=== PATIENT | female | born 1960 | race Caucasian/White ===

== ENCOUNTER → 2016-02-20 | Outpatient (CLI) | payer BC ==
--- NOTE | 2016-02-20 11:23 | REP ---
Clinical: Pelvic pain and fullness with incontinence. Technique: Transabdominal pelvic ultrasound followed by transvaginal examination for better evaluation of the endometrium and adnexa with color Doppler evaluation of the ovaries. Findings: Bladder is unremarkable and measures 9.2 x 6.5 x 7.8 cm . Heterogeneous anteverted uterus measures 7.9 x 3.3 x 4.2 cm . The endometrial complex measures 3.0 mm thickness. A 1.6 cm left lateral submucosal fibroid is appreciated. Bilateral ovaries are normal in appearance. Right ovary measures 1.6 x 1.5 x 1.3 cm. Left ovary measures 1.7 x 2.1 x 1.2 cm. No pelvic fluid or adnexal mass lesions . Impression: 1. 1.6 cm left submucosal fibroid. 2. Otherwise unremarkable pelvic ultrasound.
== END ==
LOC: M WHC 09:50
PROVIDERS: ATTEND Nurse Practitioner Women's Health
DX: N94.89 Other specified conditions associated with female genital organs and menstrual cycle (principal)

== ENCOUNTER → 2016-03-04 | Outpatient (CLI) | payer BC ==
--- NOTE | 2016-03-04 09:40 | REP ---
Chest x-ray: Two views. History: Shortness of breath. . Comparison study: No comparison . Findings: The lungs are well inflated and free of infiltrate. The pleural angles are sharp. The heart size is normal. Pulmonary vasculature is not increased. No significant bony abnormality is seen. Impression: Negative chest x-ray.
== END ==
LOC: M CLY 08:45
PROVIDERS: ATTEND Family Medicine
DX: R06.02 Shortness of breath (principal)

== ENCOUNTER → 2016-05-01 | Outpatient (CLI) | payer BC ==
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
== END | disposition home or self-care (01) ==
LOC: M PAIN 13:20
PROVIDERS: ATTEND Nurse Practitioner Family
DX: G89.29 Other chronic pain (principal); M48.06 Spinal stenosis, lumbar region; M54.16 Radiculopathy, lumbar region; M53.3 Sacrococcygeal disorders, not elsewhere classified; E10.42 Type 1 diabetes mellitus with diabetic polyneuropathy; E28.2 Polycystic ovarian syndrome; F41.9 Anxiety disorder, unspecified; Z79.899 Other long term (current) drug therapy; Z79.84 Long term (current) use of oral hypoglycemic drugs; Z79.4 Long term (current) use of insulin; Z88.8 Allergy status to other drugs, medicaments and biological substances; E73.9 Lactose intolerance, unspecified; Z87.891 Personal history of nicotine dependence

== ENCOUNTER → 2016-06-03 | Outpatient (CLI) | payer BC ==
[~2016-06-03] MED LIST: ISOVUE-370 76% 100ML VIAL (Q9967) As Ordered ONE
--- NOTE | 2016-06-04 04:50 | REP ---
Clinical: Dyspnea. Technique: Axial contrast enhanced images from the thoracic inlet to the upper abdomen using 100 ml Isovue 370 intravenous contrast material with coronal and sagittal re-formations. Findings: Satisfactory enhancement of the pulmonary vasculature is achieved and no filling defects are identified to suggest pulmonary embolus. Thoracic aorta is normal caliber without aneurysm or dissection. Heart and pericardium are normal. Lung angela demonstrate mild dependent changes. A 7 mm noncalcified nodule is identified along the subpleural right lower lobe (image 41) and right hilar lymph nodes measure up to approximately 12 mm. No further consolidation, nodule or mass lesion appreciated. No pleural effusion/reaction. No pneumothorax. Impression: 1. No evidence for pulmonary embolus. 2. A 7 mm noncalcified nodule in the right lower lobe and 12 mm right hilar lymph node. Short-term, 3-month follow-up examination is recommended. Signed by iJn Zaragoza MD 06/04/2016 04:41 A
== END ==
LOC: M RAD 09:33
PROVIDERS: ATTEND Internal Medicine Cardiovascular Disease
DX: R06.00 Dyspnea, unspecified (principal)

== ENCOUNTER → 2016-06-11 | Outpatient (CLI) | payer BC ==
--- NOTE | 2016-06-12 02:46 | REP ---
Clinical: Pain. Technique: AP, lateral, bilateral oblique and sunrise views of the left knee. Findings: Age-related degenerative changes are appreciated including subtle joint space narrowing and cortical irregularities at the femoral condyles and proximal tibia. Lateral and sunrise views demonstrate minimal decreased patellofemoral joint space at as well as a very early forming superior and lateral patellar spurring. No acute fracture dislocation. No effusion. Impression: Mild age-related degenerative changes. Signed by Jin Zaragoza MD 06/12/2016 02:37 A
== END ==
LOC: M RAD 12:25
PROVIDERS: ATTEND Physician Assistant Medical
DX: M25.562 Pain in left knee (principal)

== ENCOUNTER → 2016-06-11 | Outpatient (CLI) | payer BC | LOC: M PAIN 11:20 | PROVIDERS: ATTEND Nurse Practitioner Family | DX: Z53.29 Procedure and treatment not carried out because of patient's decision for other reasons (principal) ==

== ENCOUNTER → 2016-06-18 | Outpatient (REF) | payer BC | LOC: M SFHCCLAY 14:10 | PROVIDERS: ATTEND Family Medicine | DX: D48.9 Neoplasm of uncertain behavior, unspecified (principal) ==

== ENCOUNTER → 2016-08-20 | Outpatient (REF) | payer BC ==
[~2016-08-20] MED LIST changes: -ISOVUE-370 76% 100ML VIAL (Q9967) As Ordered ONE; +KETO10TAB PO
[2016-08-20 11:49] LABS: ALBUMIN 3.5 GM/DL (3.2-5.2); ALBUMIN/GLOBULIN RATIO 1.06 (1.00-1.93); BILIRUBIN,TOTAL 0.2 MG/DL (0.2-1.0); CREATININE FOR GFR 1.19 MG/DL (0.55-1.02); POTASSIUM SERUM 4.5 MEQ/L (3.5-5.1); TOTAL PROTEIN 6.8 GM/DL (6.4-8.2)
== END ==
LOC: M SFHCCLAY 07:15
PROVIDERS: ATTEND Family Medicine
DX: E78.2 Mixed hyperlipidemia (principal)

== ENCOUNTER → 2016-09-17 | Outpatient (CLI) | payer BC ==
[~2016-09-17] MED LIST changes: +ISOVUE-370 76% 100ML VIAL (Q9967) As Ordered ONE
--- NOTE | 2016-09-17 19:29 | REP ---
CT CHEST WITH IV CONTRAST: TECHNIQUE: Axial contrast enhanced images from the thoracic inlet to the upper abdomen using 100 mL Isovue 370 intravenous contrast material with multiplanar reformations. COMPARISON: 06/03/2016 The 7 mm nodular opacity in the right lower lobe posteriorly is unchanged. There is a tiny 2 to 3 mm nodular density in the right upper lobe which is stable. No new nodules are seen bilaterally. There is a lymph node in the right hilum measuring 1.1 cm in short axis dimension essentially stable. No new adenopathy is seen in the mediastinal or hilar regions. There is no evidence of thoracic aortic aneurysm or dissection. Heart is normal in size. There is no pleural or pericardial effusion. Visualized upper abdominal structures are unremarkable. There are mild degenerative changes of the spine. IMPRESSION: Stable 7 mm nodular opacity right lower lobe compared to the prior study of 05/24/2016. Recommend [address] of the chest if the patient is at high risk for cancer, 12 months if at low risk. Signed by Sage Tay MD 09/18/2016 05:05 P
== END ==
LOC: M RAD 15:55
PROVIDERS: ATTEND Internal Medicine Cardiovascular Disease
DX: R91.8 Other nonspecific abnormal finding of lung field (principal)
CPT/HCPCS: 71260; Q9967

== ENCOUNTER → 2016-10-01 | Outpatient (REF) | payer BC ==
[~2016-10-01] MED LIST changes: -ISOVUE-370 76% 100ML VIAL (Q9967) As Ordered ONE
[2016-10-01 18:54] LABS: BASO % 0.3 % (0.0-1.0); EOS # 0.1 K/mm3 (0.0-0.50); EOS % 1.4 % (0.0-3.0); LARGE UNSTAINED CELL # 0.1 K/mm3 (0.0-0.4); LARGE UNSTAINED CELL % 1.2 % (0.0-4.0); LYMPH # 1.9 K/mm3 (1.5-4.5); LYMPH % 40.4 % (24.0-44.0); MEAN CORPUSCULAR HEMOGLOBIN 30.5 pg (27.0-33.0); MEAN CORPUSCULAR HGB CONC 33.1 g/dl (32.0-36.5); MEAN CORPUSCULAR VOLUME 92.2 fl (80.0-96.0); MONO # 0.2 K/mm3 (0.0-0.8); MONO % 4.8 % (0.0-5.0); NEUTROPHILS # 2.4 K/mm3 (1.8-7.7); NEUTROPHILS % 51.9 % (36.0-66.0); PLATELET COUNT, AUTOMATED 361 k/mm3 (150-450); RED CELL DISTRIBUTION WIDTH 12.9 % (11.5-14.5); WHITE BLOOD COUNT 4.6 K/mm3 (4.0-10.0)
[2016-10-01 19:32] LABS: ERYTHROCYTE SEDIMENTATION RATE 28 mm/hr (0-30)
[2016-10-04 00:06] LABS: Lyme Disease IgG/IgM Antibodie <0.91 ISR (0.00-0.90); Lyme Disease IgM Ab Quantitati <0.80 index (0.00-0.79); SJOGREN'S ANTI SS-A <0.2 AI (0.0-0.9); SJOGREN'S ANTI SS-B <0.2 AI (0.0-0.9)
== END ==
LOC: M LABNEURO 14:40
PROVIDERS: ATTEND Physician Assistant Medical
DX: M25.50 Pain in unspecified joint (principal); G62.9 Polyneuropathy, unspecified

== ENCOUNTER 2016-10-05 03:03 | Emergency (ER) | payer BC ==
[~2016-10-05] VITALS: Ht 160 cm; Wt 70.0 kg
--- NOTE | 2016-10-05 04:00 | REPUSA ---
CLINICAL HISTORY: Edema. COMMENTS: Real time sonography with duplex doppler of the right lower extremity was performed with attention to the major deep venous structures. Evaluation reveals the right common femoral, superficial femoral and popliteal veins to be completely compressible without intraluminal thrombus. There is normal spontaneous phasic flow and augmentation. The greater saphenous/common femoral vein junction is patent. IMPRESSION: No evidence of DVT in right lower extremity. Thank you for your kind referral of this patient.
[2016-10-05] MEDS ORDERED: KETO10TAB PO (04:10)
[2016-10-05] MEDS ORDERED: KETOROLAC 60 MG/2 ML VIAL (J1885) IM ONE (04:15)
[2016-10-05 05:22] VITALS: BP 130/60
== END 2016-10-05 05:29 | disposition home or self-care (01) ==
LOC: EDBD 03:03 → M ED 03:03
DX: S86.911A Strain of unspecified muscle(s) and tendon(s) at lower leg level, right leg, initial encounter (principal); Z87.891 Personal history of nicotine dependence; X58.XXXA Exposure to other specified factors, initial encounter; Y92.89 Other specified places as the place of occurrence of the external cause; Y93.89 Activity, other specified; Y99.9 Unspecified external cause status
CPT/HCPCS: 93971; 96372; 99284; J1885

== ENCOUNTER → 2017-03-08 | Outpatient (REF) | payer BC, MEDICARE ==
[2017-03-08 20:20] LABS: ESTIMATED AVERAGE GLUCOSE 163 MG/DL (60-110); HEMOGLOBIN A1c 7.3 %
[2017-03-08 20:25] LABS: ALBUMIN 3.6 GM/DL (3.2-5.2); ALBUMIN/GLOBULIN RATIO 1.06 (1.00-1.93); ALKALINE PHOSPHATASE 81 U/L (45-117); ALT/SGPT 21 U/L (12-78); ANION GAP 7 MEQ/L (8-16); AST/SGOT 15 U/L (7-37); BILIRUBIN,TOTAL 0.2 MG/DL (0.2-1.0); BLOOD UREA NITROGEN 26 MG/DL (7-18); CALCIUM LEVEL 9.4 MG/DL (8.5-10.1); CARBON DIOXIDE LEVEL 29 MEQ/L (21-32); CHLORIDE LEVEL 106 MEQ/L (98-107); CHOLESTEROL LEVEL 182 MG/DL (<200); CHOLESTEROL RISK RATIO 2.527 (<5); CREATININE FOR GFR 1.54 MG/DL (0.55-1.30); GLUCOSE, FASTING 95 MG/DL (70-100); HDL CHOLESTEROL 72 MG/DL (>40); LDL CHOLESTEROL 78.6 MG/DL (<100); NON-HDL-C 110 MG/DL; POTASSIUM SERUM 4.2 MEQ/L (3.5-5.1); SODIUM LEVEL 142 MEQ/L (136-145); TRIGLYCERIDES LEVEL 157 MG/DL (<150)
== END ==
LOC: M SFHCCLAY 09:22
DX: E78.2 Mixed hyperlipidemia (principal); E10.42 Type 1 diabetes mellitus with diabetic polyneuropathy
CPT/HCPCS: 84443

== ENCOUNTER → 2017-04-07 | Outpatient (REF) | payer MEDICARE, BC ==
[2017-04-07 17:40] LABS: CHOLESTEROL LEVEL 238 MG/DL (<200); CHOLESTEROL RISK RATIO 3.777 (<5); HDL CHOLESTEROL 63 MG/DL (>40); LDL CHOLESTEROL 109.2 MG/DL (<100); NON-HDL-C 175 MG/DL; TRIGLYCERIDES LEVEL 329 MG/DL (<150)
== END ==
LOC: M SFHCCLAY 10:48
DX: E78.2 Mixed hyperlipidemia (principal)
CPT/HCPCS: 84443

== ENCOUNTER → 2017-04-23 | Outpatient (REF) | payer BC, MEDICARE ==
[2017-04-23 17:21] LABS: ANION GAP 9 MEQ/L (8-16); BLOOD UREA NITROGEN 24 MG/DL (7-18); CALCIUM LEVEL 9.5 MG/DL (8.5-10.1); CARBON DIOXIDE LEVEL 30 MEQ/L (21-32); CHLORIDE LEVEL 100 MEQ/L (98-107); CREATININE FOR GFR 1.21 MG/DL (0.55-1.30); GLOMERULAR FILTRATION RATE 48.8 (>51); GLUCOSE, FASTING 116 MG/DL (70-100); POTASSIUM SERUM 4.7 MEQ/L (3.5-5.1); SODIUM LEVEL 139 MEQ/L (136-145)
== END ==
LOC: M SFHCCLAY 12:08
DX: R79.89 Other specified abnormal findings of blood chemistry (principal)
CPT/HCPCS: 80048

== ENCOUNTER → 2017-05-27 | Outpatient (REF) | payer BC, MEDICARE ==
[2017-05-27 12:15] LABS: ANION GAP 5 MEQ/L (8-16); BLOOD UREA NITROGEN 17 MG/DL (7-18); CALCIUM LEVEL 9.3 MG/DL (8.5-10.1); CARBON DIOXIDE LEVEL 29 MEQ/L (21-32); CHLORIDE LEVEL 110 MEQ/L (98-107); CHOLESTEROL LEVEL 227 MG/DL (<200); CHOLESTEROL RISK RATIO 3.783 (<5); CREATININE FOR GFR 1.15 MG/DL (0.55-1.30); GLOMERULAR FILTRATION RATE 51.8 (>51); GLUCOSE, FASTING 82 MG/DL (70-100); HDL CHOLESTEROL 60 MG/DL (>40); LDL CHOLESTEROL 128.6 MG/DL (<100); NON-HDL-C 167 MG/DL; POTASSIUM SERUM 4.2 MEQ/L (3.5-5.1); SODIUM LEVEL 144 MEQ/L (136-145); TRIGLYCERIDES LEVEL 192 MG/DL (<150)
[2017-05-27 12:25] LABS: ESTIMATED AVERAGE GLUCOSE 166 MG/DL (60-110); HEMOGLOBIN A1c 7.4 %
[2017-05-27 13:14] LABS: MAU/CREAT RATIO 46.9 MCG/MG (0.0-30.0)
== END ==
LOC: M LABDRAWC 11:31
DX: E10.65 Type 1 diabetes mellitus with hyperglycemia (principal)
CPT/HCPCS: 83036

== ENCOUNTER → 2017-06-28 | Outpatient (CLI) | payer MEDICARE, BC ==
[2017-06-28 11:58] LABS: GLUCOSE, FASTING 115 MG/DL (70-100)
[2017-06-28 12:21] LABS: MALB URINE SIEMENS 29.1 MG/L; MAU/CREAT RATIO 22.5 MCG/MG (0.0-30.0)
[2017-06-29 14:11] LABS: C-PEPTIDE 1.6 ng/mL (1.1-4.4)
== END ==
LOC: M LAB 10:14
DX: E10.65 Type 1 diabetes mellitus with hyperglycemia (principal)
CPT/HCPCS: 82947

== ENCOUNTER → 2017-07-29 | Outpatient (REF) | payer MEDICARE, BC ==
[2017-07-29 18:53] LABS: ANION GAP 7 MEQ/L (8-16); BLOOD UREA NITROGEN 19 MG/DL (7-18); CARBON DIOXIDE LEVEL 31 MEQ/L (21-32); CHLORIDE LEVEL 107 MEQ/L (98-107); CREATININE FOR GFR 1.08 MG/DL (0.55-1.30); GLOMERULAR FILTRATION RATE 55.7 (>51); GLUCOSE, FASTING 83 MG/DL (70-100); POTASSIUM SERUM 4.2 MEQ/L (3.5-5.1); SODIUM LEVEL 145 MEQ/L (136-145)
== END ==
LOC: M LABDRAWC 17:38
DX: R06.02 Shortness of breath (principal)
CPT/HCPCS: 80048

== ENCOUNTER → 2017-08-02 | Outpatient (CLI) | payer MEDICARE, BC ==
[~2017-08-02] MED LIST changes: +ISOVUE-370 76% 100ML VIAL (Q9967) As Ordered; -KETO10TAB PO
== END ==
LOC: M RAD 07:29
DX: R91.1 Solitary pulmonary nodule (principal)
CPT/HCPCS: Q9967

== ENCOUNTER → 2017-08-31 | Outpatient (REF) | payer MEDICARE, BC ==
[2017-08-31 18:20] LABS: ANION GAP 8 MEQ/L (8-16); BLOOD UREA NITROGEN 16 MG/DL (7-18); CALCIUM LEVEL 8.8 MG/DL (8.5-10.1); CARBON DIOXIDE LEVEL 24 MEQ/L (21-32); CHLORIDE LEVEL 111 MEQ/L (98-107); CREATININE FOR GFR 1.17 MG/DL (0.55-1.30); GLOMERULAR FILTRATION RATE 50.8 (>51); GLUCOSE, FASTING 109 MG/DL (70-100); POTASSIUM SERUM 4.1 MEQ/L (3.5-5.1); SODIUM LEVEL 143 MEQ/L (136-145)
[2017-08-31 18:24] LABS: ESTIMATED AVERAGE GLUCOSE 186 MG/DL (60-110); HEMOGLOBIN A1c 8.1 %
[2017-09-02 15:06] LABS: C-PEPTIDE 1.4 ng/mL (1.1-4.4)
== END ==
LOC: M LAB REF 17:18
DX: E10.65 Type 1 diabetes mellitus with hyperglycemia (principal)
CPT/HCPCS: 83036

== ENCOUNTER → 2017-09-13 | Outpatient (CLI) | payer MEDICARE, BC ==
[2017-09-13 17:20] LABS: ALBUMIN 3.4 GM/DL (3.2-5.2); ALBUMIN/GLOBULIN RATIO 0.97 (1.00-1.93); ALKALINE PHOSPHATASE 81 U/L (45-117); ALT/SGPT 27 U/L (12-78); ANION GAP 9 MEQ/L (8-16); AST/SGOT 15 U/L (7-37); BILIRUBIN,TOTAL 0.1 MG/DL (0.2-1.0); BLOOD UREA NITROGEN 21 MG/DL (7-18); CALCIUM LEVEL 8.8 MG/DL (8.5-10.1); CARBON DIOXIDE LEVEL 23 MEQ/L (21-32); CHLORIDE LEVEL 110 MEQ/L (98-107); CREATININE FOR GFR 1.12 MG/DL (0.55-1.30); GLOMERULAR FILTRATION RATE 53.4 (>51); GLUCOSE, FASTING 203 MG/DL (70-100); POTASSIUM SERUM 4.1 MEQ/L (3.5-5.1); SODIUM LEVEL 142 MEQ/L (136-145); TOTAL PROTEIN 6.9 GM/DL (6.4-8.2)
[2017-09-13 17:25] LABS: BASO % 0.5 % (0.0-1.0); EOS # 0.1 10^3/uL (0.0-0.50); EOS % 1.6 % (0.0-3.0); HEMATOCRIT 32.5 % (36.0-47.0); HEMOGLOBIN 10.4 g/dl (12.0-15.5); IMMATURE GRANULOCYTE % 0.2 % (0-3.0); LYMPH # 1.7 10^3/uL (1.5-4.5); LYMPH % 39.2 % (24.0-44.0); MEAN CORPUSCULAR HEMOGLOBIN 28.7 pg (27.0-33.0); MEAN CORPUSCULAR VOLUME 89.5 fl (80.0-96.0); MONO # 0.3 10^3/uL (0.0-0.8); MONO % 6.8 % (0.0-5.0); NEUTROPHILS # 2.3 10^3/uL (1.8-7.7); NEUTROPHILS % 51.7 % (36.0-66.0); PLATELET COUNT, AUTOMATED 332 10^3/uL (150-450); RED BLOOD COUNT 3.63 10^6/uL (4.00-5.40); RED CELL DISTRIBUTION WIDTH 13.7 % (11.5-14.5); WHITE BLOOD COUNT 4.4 10^3/uL (4.0-10.0)
== END ==
LOC: M CLY 13:41
DX: Z01.818 Encounter for other preprocedural examination (principal); E11.43 Type 2 diabetes mellitus with diabetic autonomic (poly)neuropathy
CPT/HCPCS: 80053

== ENCOUNTER → 2017-09-23 | Outpatient (REF) | payer MEDICARE, BC ==
[2017-09-23 18:40] LABS: GLUCOSE,RANDOM 27 MG/DL (LESS THAN 200)
== END ==
LOC: M LAB REF 17:31
DX: E10.65 Type 1 diabetes mellitus with hyperglycemia (principal)
CPT/HCPCS: 82947

== ENCOUNTER → 2017-12-06 | Outpatient (CLI) | payer MEDICARE, BC ==
[2017-12-06 10:39] LABS: ESTIMATED AVERAGE GLUCOSE 189 MG/DL (60-110); HEMOGLOBIN A1c 8.2 %
== END ==
LOC: M LAB 09:44
DX: E10.65 Type 1 diabetes mellitus with hyperglycemia (principal)
CPT/HCPCS: 83036

== ENCOUNTER → 2018-03-02 | Outpatient (CLI) | payer MEDICARE, BC ==
[~2018-03-02] MED LIST changes: +ATOR40TA75 PO; +CARV6.25 PO; +CILO50TA PO; +DEXI30CA2 PO; +DEXI60CA2 PO; +DICY20TA11 PO; +DULO1CAP3 PO; +FURO40TA2 PO; +GABA600T4 PO; +INSUR50VL SC; -ISOVUE-370 76% 100ML VIAL (Q9967) As Ordered; +KETO10TAB PO; +METF10004 PO; +MULT1TAB10 PO; +PLAV1TAB2 PO; +QUDE1CAP PO; +RAMI1CAP21 PO; +TRAZ-160 PO; +TYLE500T78 PO; +VITA500055 PO; +VITA500T PO; +ZANT300T9 PO; +ZOFR4SOL PO; +ZOFR8TAB24 PO
--- NOTE | 2018-03-02 11:52 | REP ---
LEFT HIP, TWO VIEWS: HISTORY: Pain. There is no acute fracture or dislocation. There is minimal narrowing of the joint space. IMPRESSION: There is no acute fracture or dislocation. Electronically Signed by Aniket Cortez MD 03/02/2018 11:54 A
== END ==
LOC: M WUC 11:27
PROVIDERS: ATTEND Physician Assistant Medical
DX: M25.552 Pain in left hip (principal)

== ENCOUNTER → 2018-03-14 | Outpatient (REF) | payer MEDICARE, BC ==
[~2018-03-14] MED LIST changes: -ATOR40TA75 PO; -CARV6.25 PO; -CILO50TA PO; -DEXI30CA2 PO; -DEXI60CA2 PO; -DICY20TA11 PO; -DULO1CAP3 PO; -FURO40TA2 PO; -GABA600T4 PO; -INSUR50VL SC; -METF10004 PO; -MULT1TAB10 PO; -PLAV1TAB2 PO; -QUDE1CAP PO; -RAMI1CAP21 PO; -TRAZ-160 PO; -TYLE500T78 PO; -VITA500055 PO; -VITA500T PO; -ZANT300T9 PO; -ZOFR4SOL PO; -ZOFR8TAB24 PO
== END ==
LOC: M LAB REF 17:18
PROVIDERS: ATTEND Plastic Surgery Surgery of the Hand
DX: D21.0 Benign neoplasm of connective and other soft tissue of head, face and neck (principal)

== ENCOUNTER 2018-04-13 10:11 | Day surgery (SDC) | payer MEDICARE, BC ==
[~2018-04-13] VITALS: Ht 158.8 cm; Wt 71.2 kg
[~2018-04-13 10:11] MED LIST changes: +ATOR40TA75 PO; +CARV6.25 PO; +CILO50TA PO; +DEXI30CA2 PO; +DEXI60CA2 PO; +DICY20TA11 PO; +DULO1CAP3 PO; +FURO40TA2 PO; +GABA600T4 PO; +INSUR50VL SC; +METF10004 PO; +MULT1TAB10 PO; +PLAV1TAB2 PO; +POVIDONE-IODINE 5% OPHTH PREP SOL 30ML As Ordered ONE; +QUDE1CAP PO; +RAMI1CAP21 PO; +TRAZ-160 PO; +TYLE500T78 PO; +VITA500055 PO; +VITA500T PO; +ZANT300T9 PO; +ZOFR4SOL PO; +ZOFR8TAB24 PO
[2018-04-13] MEDS ORDERED: dexameTHASONE 4 MG/ML 1ML VIAL (J1100) As Ordered ONE (10:12)
[2018-04-13] MEDS ORDERED: LIDOCAINE 2% INJ 100 MG/5 ML SDV (FOR ANES.) As Ordered ONE (10:12)
[2018-04-13] MEDS ORDERED: ONDANSETRON 4MG/2ML VIAL (J2405) As Ordered ONE (10:12)
[2018-04-13] MEDS ORDERED: KETOROLAC 60 MG/2 ML VIAL (J1885) As Ordered ONE (10:12)
[2018-04-13] MEDS ORDERED: PROPOFOL 200 MG/20 ML VIAL As Ordered ONE (10:12)
[2018-04-13] MEDS ORDERED: fentaNYL 100 MCG/2 ML INJECTION (J3010) As Ordered ONE (10:13)
[2018-04-13] MEDS ORDERED: MIDAZOLAM INJ 2 MG/2 ML VIAL (J2250) As Ordered ONE (10:13)
[2018-04-13] MEDS ORDERED: ceFAZolin 1GM INJ (J0690 PER 500MG) As Ordered ONE (10:58)
[2018-04-13] MEDS ORDERED: LIDOCAINE 2% W/EPIN INJ 20ML **PRES FREE As Ordered ONE (11:48)
--- NOTE | 2018-04-13 12:57 | POST-OPPD ---
Postoperative Procedure Note Date Of Procedure: Apr 13, 2018 PREOPERATIVE DIAGNOSIS: Malignant lesion left nose POSTOPERATIVE DIAGNOSIS: same FINDINGS: Scar 0.3cm PROCEDURE: Excision left nose malignant lesion SURGEON: Dr Varma ANESTHESIA: Local with sedation SPECIMENS: left nose lesion FS ESTIMATED BLOOD LOSS: 1 cc REPLACED: none DRAINS: none COMPLICATIONS: none POSTOPERATIVE CONDITION: stable JAQUELINE VARMA DO Apr 13, 2018 12:57
[2018-04-13 13:00] VITALS: BP 132/64
--- NOTE | 2018-04-14 08:46 | RO ---
DATE OF PROCEDURE: 04/13/2018 PREPROCEDURE DIAGNOSIS: Malignant lesion, left nose. POSTPROCEDURE DIAGNOSIS: Malignant lesion, left nose. PROCEDURE: Excision of left nose malignant lesion. SURGEON: Dr. Pema Mccall. BLANKING MACHINE OPERATOR: ANESTHESIA: Local with sedation. SPECIMEN: Sent for frozen section of the left nose lesion. ESTIMATED BLOOD LOSS: About 1 mL. No replacement. DRAINS: No drains. COMPLICATIONS: None. DESCRIPTION OF PROCEDURE: This is a 57-year-old female who presented to our office with initial presentation of the lesion that is slow growing on the left part of her nose upper portion. The lesion was excised in the office setting and excisional biopsy was sent. Squamous cell carcinoma was identified at the deep margins so patient was scheduled for deep excision of the scar with full-thickness in the operating room with a frozen section. All the risks and benefits and alternatives were discussed with the patient at length and she is ready to proceed. On the day of surgery, the scar is visible. It is about 0.3 cm in length. We marked it out and brought the patient to the operating room, placed in supine position. Preoperative antibiotics are given. Sequentials placed on the lower calves. She was given slight sedation. We have given her local anesthesia 2% lidocaine with epinephrine and then an elliptical incision was carried out and taken the whole scar out full thickness and it was sent to pathology. Clear margins were confirmed. No cancer remained. We closed our incision with interrupted #5-0 Monocryl sutures and then Steri-Strips were applied. Total excision is probably 0.5 cm in length. The patient tolerated the procedure well. Transferred to the recovery room in stable condition.
== END 2018-04-13 14:03 | disposition home or self-care (01) ==
LOC: M SDC 10:11
PROVIDERS: ATTEND Plastic Surgery Surgery of the Hand
DX: C44.321 Squamous cell carcinoma of skin of nose (principal); I10 Essential (primary) hypertension; E78.5 Hyperlipidemia, unspecified; E10.9 Type 1 diabetes mellitus without complications; Z79.4 Long term (current) use of insulin; Z98.61 Coronary angioplasty status; K44.9 Diaphragmatic hernia without obstruction or gangrene; K58.8 Other irritable bowel syndrome; K31.84 Gastroparesis; Z79.02 Long term (current) use of antithrombotics/antiplatelets; Z79.899 Other long term (current) drug therapy; Z88.8 Allergy status to other drugs, medicaments and biological substances; Z97.8 Presence of other specified devices
CPT/HCPCS: 11640; 88305; 88331; J2250; J2405; J3010

== ENCOUNTER → 2018-07-22 | Outpatient (CLI) | payer MEDICARE, BC ==
[~2018-07-22] MED LIST changes: -POVIDONE-IODINE 5% OPHTH PREP SOL 30ML As Ordered ONE; -TRAZ-160 PO; +TRAZ-252 PO
--- NOTE | 2018-07-22 10:04 | REP ---
CT CHEST WITHOUT IV CONTRAST: CT chest performed without IV contrast and compared to the prior study dating back to 06/03/2016 There are two stable benign nodules in the right lung. There is a 2 mm nodule in the right upper lobe seen on image 29. There is a 7 mm stable nodule in the right lower lobe on image 46 posteriorly. These are completely unchanged. No new nodules are seen bilaterally. No axillary or mediastinal adenopathy is seen. Thoracic aorta is normal in caliber with no aneurysm. The heart is normal in size. No pleural or pericardial effusion is seen. There are mild degenerative changes of the spine. Stable compression for many of the upper and thoracic vertebral bodies noted. There is fatty infiltration of the liver diffusely. Metallic wires are seen in the upper abdomen connected to a device in the subcutaneous soft tissues of the left upper quadrant. IMPRESSION: Two stable benign pulmonary nodules right lung, completely unchanged compared to a prior study of 06/03/2016. No new abnormalities. Electronically Signed by Sage Tay MD 07/22/2018 07:26 P
== END ==
LOC: M RAD 08:41
PROVIDERS: ATTEND Internal Medicine Cardiovascular Disease
DX: R91.1 Solitary pulmonary nodule (principal)

== ENCOUNTER → 2018-09-01 | Outpatient (REF) | payer MEDICARE, BC ==
[~2018-09-01] MED LIST changes: +ACET-683 PO; -DULO1CAP3 PO; +DULO1CAP6 PO; +FERR325T3 PO; +MULT-40 PO; +TIZA4CAP6 PO; +VITA500030 PO
[2018-09-02 11:58] LABS: BASO % 0.5 % (0.0-1.0); EOS # 0.1 10^3/uL (0.0-0.50); EOS % 1.2 % (0.0-3.0); HEMATOCRIT 35.1 % (36.0-47.0); HEMOGLOBIN 10.7 g/dl (12.0-15.5); LYMPH # 2.2 10^3/uL (1.5-4.5); LYMPH % 36.1 % (24.0-44.0); MEAN CORPUSCULAR HEMOGLOBIN 28.4 pg (27.0-33.0); MEAN CORPUSCULAR HGB CONC 30.5 g/dl (32.0-36.5); MEAN CORPUSCULAR VOLUME 93.1 fl (80.0-96.0); MONO # 0.3 10^3/uL (0.0-0.8); MONO % 5.7 % (0.0-5.0); NEUTROPHILS # 3.4 10^3/uL (1.8-7.7); NEUTROPHILS % 56.3 % (36.0-66.0); PLATELET COUNT, AUTOMATED 381 10^3/uL (150-450); RED BLOOD COUNT 3.77 10^6/uL (4.00-5.40)
[2018-09-02 12:31] LABS: ALBUMIN 3.8 GM/DL (3.2-5.2); ALT/SGPT 27 U/L (12-78); BILIRUBIN,TOTAL 0.2 MG/DL (0.2-1.0); BLOOD UREA NITROGEN 16 MG/DL (7-18); CALCIUM LEVEL 9.5 MG/DL (8.5-10.1); CARBON DIOXIDE LEVEL 25 MEQ/L (21-32); CHLORIDE LEVEL 111 MEQ/L (98-107); CHOLESTEROL LEVEL 242 MG/DL (<200); CHOLESTEROL RISK RATIO 4.245 (<5); FOLATE 14.4 NG/ML (>5.4); GLOMERULAR FILTRATION RATE > 60.0 (>51); GLUCOSE, FASTING 122 MG/DL (70-100); HDL CHOLESTEROL 57 MG/DL (>40); IRON (FE) 51 UG/DL (50-170); LDL CHOLESTEROL 140 MG/DL (<100); NON-HDL-C 185 MG/DL; POTASSIUM SERUM 4.4 MEQ/L (3.5-5.1); SODIUM LEVEL 143 MEQ/L (136-145); THYROXINE (T4) 6.2 UG/DL (4.5-12.0); TOTAL PROTEIN 7.3 GM/DL (6.4-8.2); TRIGLYCERIDES LEVEL 223 MG/DL (<150); VITAMIN B12 LEVEL 661 PG/ML (247-911)
[2018-09-06 14:07] LABS: Lyme Disease IgG/IgM Antibodie <0.91 ISR (0.00-0.90); Lyme Disease IgM Ab Quantitati <0.80 index (0.00-0.79); VITAMIN D 1,25 DIHYDROXY 46.7 pg/mL (19.9-79.3)
== END ==
LOC: M SFHCCLAY 14:15
PROVIDERS: ATTEND Family Medicine
DX: D64.9 Anemia, unspecified (principal); R53.83 Other fatigue; E78.2 Mixed hyperlipidemia; Z13.21 Encounter for screening for nutritional disorder
CPT/HCPCS: 80053; 80061; 82607; 82652; 82746; 83540; 84436; 84443; 84480; 85025; 86617; G0463

== ENCOUNTER 2018-11-09 06:15 | Day surgery (SDC) | payer MEDICARE, BC ==
[~2018-11-09] VITALS: Ht 157.5 cm; Wt 68.9 kg
[~2018-11-09 06:15] MED LIST changes: +NS 1,000 ML IV ONE
[2018-11-09] MEDS ORDERED: LIDOCAINE 2% INJ 100 MG/5 ML SDV (FOR ANES.) As Ordered ONE (07:06)
[2018-11-09] MEDS ORDERED: PROPOFOL 200 MG/20 ML VIAL As Ordered ONE ×2 (07:06→07:55)
--- NOTE | 2018-11-09 08:00 | ROOR ---
Patient Name: Blaire Tay Procedure Date: 11/09/2018 7:12 AM Date of : 1960 Age: 58 Room: [facility] Gender: Female Note Status: Finalized Procedure: Colonoscopy Indications: High risk colon cancer surveillance: Personal history of colonic polyps Providers: Sage Bright DO Referring MD: MARLEN BRONSON DO Requesting Provider: Medicines: Propofol per Anesthesia Complications: No immediate complications. Procedure: Pre-Anesthesia Assessment: - Prior to the procedure, a History and Physical was performed, and patient medications and allergies were reviewed. The patient is competent. The risks and benefits of the procedure and the sedation options and risks were discussed with the patient. All questions were answered and informed consent was obtained. Patient identification and proposed procedure were verified by the physician, the nurse, the anesthesiologist and the line maintenance technician in the endoscopy suite. Mental Status Examination: alert and oriented. Airway Examination: normal oropharyngeal airway and neck mobility. Respiratory Examination: clear to auscultation. CV Examination: normal. Prophylactic Antibiotics: The patient does not require prophylactic antibiotics. Prior Anticoagulants: The patient has taken Plavix (clopidogrel). ASA Grade Assessment: III - A patient with severe systemic disease. After reviewing the risks and benefits, the patient was deemed in satisfactory condition to undergo the procedure. The anesthesia plan was to use monitored anesthesia care (MAC). Immediately prior to administration of medications, the patient was re-assessed for adequacy to receive sedatives. The heart rate, respiratory rate, oxygen saturations, blood pressure, adequacy of pulmonary ventilation, and response to care were monitored throughout the procedure. The physical status of the patient was re-assessed after the procedure. The Colonoscope was introduced through the anus and advanced to the cecum, identified by appendiceal orifice and ileocecal valve. The colonoscopy was performed without difficulty. The patient tolerated the procedure well. Findings: Internal hemorrhoids were found during retroflexion. The hemorrhoids were mild and Grade II (internal hemorrhoids that prolapse but reduce spontaneously). A few small-mouthed diverticula were found in the sigmoid colon. The exam was otherwise without abnormality on direct and retroflexion views. Impression: - Internal hemorrhoids. - Diverticulosis in the sigmoid colon. - The examination was otherwise normal on direct and retroflexion views. - No specimens collected. Recommendation: - Patient has a contact number available for emergencies. The signs and symptoms of potential delayed complications were discussed with the patient. Return to normal activities tomorrow. Written discharge instructions were provided to the patient. - Repeat colonoscopy in 5 years for surveillance. - Return to my office PRN. - Resume Plavix (clopidogrel) at prior dose today. Sage Bright DO 11/09/2018 8:00:07 AM Electronically signed by Sage Bright DO Number of Addenda: 0 Note Initiated On: 11/09/2018 7:12 AM Estimated Blood Loss: Estimated blood loss: none.
[2018-11-09 08:04] VITALS: BP 111/57
== END 2018-11-09 08:42 | disposition home or self-care (01) ==
LOC: M OPP 06:15
PROVIDERS: ATTEND Surgery
DX: Z12.11 Encounter for screening for malignant neoplasm of colon (principal); Z86.010 Personal history of colon polyps; K64.1 Second degree hemorrhoids; K57.30 Diverticulosis of large intestine without perforation or abscess without bleeding; I25.10 Atherosclerotic heart disease of native coronary artery without angina pectoris; Z95.5 Presence of coronary angioplasty implant and graft; I10 Essential (primary) hypertension; E78.5 Hyperlipidemia, unspecified; E11.9 Type 2 diabetes mellitus without complications; K44.9 Diaphragmatic hernia without obstruction or gangrene; K31.84 Gastroparesis; K58.9 Irritable bowel syndrome, unspecified; K21.9 Gastro-esophageal reflux disease without esophagitis; M19.90 Unspecified osteoarthritis, unspecified site; M54.89 Other dorsalgia; Z85.828 Personal history of other malignant neoplasm of skin; F32.9 Major depressive disorder, single episode, unspecified; Z97.8 Presence of other specified devices; G43.909 Migraine, unspecified, not intractable, without status migrainosus; Z88.8 Allergy status to other drugs, medicaments and biological substances; Z79.02 Long term (current) use of antithrombotics/antiplatelets; Z79.899 Other long term (current) drug therapy; Z79.4 Long term (current) use of insulin

== ENCOUNTER → 2018-12-08 | Outpatient (REF) | payer MEDICARE, BC ==
[~2018-12-08] MED LIST changes: -NS 1,000 ML IV ONE
== END ==
LOC: M SFHCWAGY 11:30
PROVIDERS: ATTEND Nurse Practitioner Women's Health
DX: Z12.4 Encounter for screening for malignant neoplasm of cervix (principal); N95.2 Postmenopausal atrophic vaginitis

== ENCOUNTER → 2018-12-08 | Outpatient (CLI) | payer MEDICARE, BC ==
--- NOTE | 2018-12-08 12:20 | REPMRS ---
Patient History The patient states she had a clinical breast exam in 11/2018. Family history of breast cancer at age 50 or over in maternal grandmother, breast cancer under age 50 in sister, ovarian cancer under age 50 in sister. 3D TOMOSYNTHESIS WAS PERFORMED. The Rehan Henriquez lifetime risk for breast cancer is 16.8%. Digital Woman Screen Mammo: December 08, 2018 - Exam #: [id number] Bilateral CC and MLO view(s) were taken. Technologist: Giovanna Brenner, Technologist Prior study comparison: January 14, 2016, digital woman screen mammo performed at [facility]. 2011, digital bilateral screening mammo, performed at [facility]. FINDINGS: The breast tissue is heterogeneously dense. This may lower the sensitivity of mammography. There has been no change in the appearance of the mammogram from the prior studies. There is a moderate amount of residual fibroglandular tissue which is fairly symmetric. There is no interval development of dominant mass, areas of architectural distortion, or clustered microcalcification typical of malignancy. Assessment: BI-RADS/ACR category 1 mammogram. Negative Mammogram. Recommendation Routine screening mammogram in 1 year (for women over age 40). This mammogram was interpreted with the aid of an FDA-approved computer-aided dectection system. Electronically Signed By: Sage Tay MD 12/08/18 [id number]
== END ==
LOC: M WHC 11:25
PROVIDERS: ATTEND Nurse Practitioner Women's Health
DX: Z01.419 Encounter for gynecological examination (general) (routine) without abnormal findings (principal); Z12.31 Encounter for screening mammogram for malignant neoplasm of breast; Z80.3 Family history of malignant neoplasm of breast; Z80.41 Family history of malignant neoplasm of ovary
CPT/HCPCS: 77063; 77067; G0101; G0123; G0463

== ENCOUNTER → 2019-03-03 | Outpatient (REF) | payer MEDICARE, BC ==
[2019-03-03 11:55] LABS: BASO % 0.3 % (0.0-1.0); EOS # 0.1 10^3/uL (0.0-0.5); EOS % 1.3 % (0.0-3.0); HEMATOCRIT 38.6 % (36.0-47.0); HEMOGLOBIN 12.4 g/dl (12.0-15.5); LYMPH # 2.7 10^3/uL (1.5-5.0); LYMPH % 43.3 % (24.0-44.0); MEAN CORPUSCULAR HGB CONC 32.1 g/dl (32.0-36.5); MEAN CORPUSCULAR VOLUME 90.4 fl (80.0-96.0); MONO # 0.4 10^3/uL (0.0-0.8); MONO % 7.1 % (0.0-5.0); NEUTROPHILS % 47.8 % (36.0-66.0); PLATELET COUNT, AUTOMATED 392 10^3/uL (150-450); RED BLOOD COUNT 4.27 10^6/uL (4.00-5.40); WHITE BLOOD COUNT 6.2 10^3/uL (4.0-10.0)
[2019-03-03 12:32] LABS: FERRITIN 82 NG/ML (8-252); IRON (FE) 56 UG/DL (50-170)
== END ==
LOC: M SFHCCLAY 09:30
PROVIDERS: ATTEND Family Medicine
DX: D64.9 Anemia, unspecified (principal)

== ENCOUNTER → 2019-03-08 | Outpatient (REF) | payer MEDICARE, BC ==
[2019-03-10 00:07] LABS: ANTI DOUBLE STRAND-DNA AB 10 IU/mL (0-9); ANTINUCLEAR ANTIBODIES DIRECT Positive (Negative); Lyme Disease IgG/IgM Antibodie <0.91 ISR (0.00-0.90); Lyme Disease IgM Ab Quantitati <0.80 index (0.00-0.79); RNP ANTIBODIES <0.2 AI (0.0-0.9); SJOGREN'S ANTI SS-A <0.2 AI (0.0-0.9); SJOGREN'S ANTI SS-B <0.2 AI (0.0-0.9); SMITH ANTIBODIES <0.2 AI (0.0-0.9)
== END ==
LOC: M LABDRAWC 11:27
PROVIDERS: ATTEND Physician Assistant Medical
DX: G62.9 Polyneuropathy, unspecified (principal); M25.549 Pain in joints of unspecified hand

== ENCOUNTER → 2019-03-22 | Outpatient (CLI) | payer MEDICARE, BC ==
[~2019-03-22] MED LIST changes: +E-Z-GAS II EFFERVESCENT PACKET (SODIUM BICARB./CITRIC ACID/SIMETHICONE) As Ordered ONE; +E-Z-HD 98% w/w 340GM SUSP BTL As Ordered ONE; +E-Z-PAQUE 96% w/w SUSP 176GM BTL As Ordered ONE
--- NOTE | 2019-03-22 16:13 | REP ---
Examination Requested: Upper G.I. Series With KUB Reason For Exam: Pharyngoesophageal dysphasia Upper GI Air Contrast The procedure was performed by ISHMAEL Bermudez, under the direct supervision of Dr. Adler. The images were reviewed with Dr. Adler. Comparison is made with previous upper GI studies dated 05/20/2010 and 08/08 2008. The learning support specialist film shows no organomegaly or pathological masses. The intestinal gas pattern appears normal. There is a fusion of C4 and C5. There is a gastric stimulator visualized in the left upper quadrant. There is an insulin pump in the right lower quadrant. Liquid barium and gas producing crystals were given in the erect position as well as liquid barium in the prone oblique position in order to perform a double contrast upper GI examination. The oral and pharyngeal stages of deglutition demonstrate laryngeal penetration. Esophageal transport is efficient and there is no esophagitis, stricture, or mucosal ring noted. There is a small hiatal hernia. Gastroesophageal reflux was not visualized on today's exam. The stomach ro are normally outlined. The rugal folds are smooth and regular. There is no gastritis, neoplasm, ulcer disease noted. Previously noted gastric nodules were not visualized. The duodenal ro are normally outlined. The mucosal folds are smooth and regular. There is no duodenitis, peptic ulcer disease, or neoplasm noted. The visualized portion of the proximal small bowel appears normal in course and caliber. Impression: 1. Laryngeal penetration. 2. Small hiatal hernia. 0.7 minutes of fluoroscopy time was utilized for this procedure. Some fluoroscopic images are performed with last image hold technology. These images require no additional radiation. Reviewed by ISHMAEL Stoll 03/22/2019 09:10 A Electronically Signed by Lalo Adler MD 03/22/2019 04:04 P
== END ==
LOC: M RAD 07:54
PROVIDERS: ATTEND Family Medicine
DX: R13.14 Dysphagia, pharyngoesophageal phase (principal); K44.9 Diaphragmatic hernia without obstruction or gangrene

== ENCOUNTER → 2019-04-14 | Outpatient (CLI) | payer MEDICARE, BC ==
[~2019-04-14] MED LIST changes: -E-Z-GAS II EFFERVESCENT PACKET (SODIUM BICARB./CITRIC ACID/SIMETHICONE) As Ordered ONE; -E-Z-HD 98% w/w 340GM SUSP BTL As Ordered ONE; -E-Z-PAQUE 96% w/w SUSP 176GM BTL As Ordered ONE
--- NOTE | 2019-04-14 17:00 | REP ---
BILATERAL HAND SERIES: Four views of each hand performed. No acute fracture or dislocation is seen. On the left there is mild spurring at the dorsal base of the 3rd and 4th distal phalanges. On the right there is a small round calcific density dorsal to the proximal carpal row which may represent an old triquetral fracture. Otherwise no significant arthritic changes are seen. IMPRESSION: No significant joint space narrowing. Mild spurring of the left 3rd and 4th distal phalanges, dorsal aspect. Possible old right triquetral fracture dorsally. Electronically Signed by Sage Tay MD 04/18/2019 04:13 P
== END ==
LOC: M RAD 14:18
PROVIDERS: ATTEND Internal Medicine
DX: M19.042 Primary osteoarthritis, left hand (principal); M25.50 Pain in unspecified joint; R76.8 Other specified abnormal immunological findings in serum; R53.82 Chronic fatigue, unspecified
CPT/HCPCS: 36415; 73130; 84439; 84443; 85652; 86038; 86140; 86200; 86376; 86431; G0463

== ENCOUNTER → 2019-04-14 | Outpatient (REF) | payer MEDICARE, BC ==
[2019-04-14 18:57] LABS: FREE T4 0.81 NG/DL (0.76-1.46); RHEUMATOID FACTOR QUANT < 10.0 IU/ML (<15.0)
[2019-04-14 19:20] LABS: C REACTIVE PROTEIN QUANTITATIV 0.72 MG/DL (0.00-0.30)
[2019-04-14 19:42] LABS: THYROID PEROXIDASE ANTIBODY > 1300.0 U/ML (<60.0)
[2019-04-18 00:06] LABS: ANA (HEP2) Positive (.); CYCLIC CITRULLINATED PEPTIDE 7 units (0-19)
== END ==
LOC: M SFHCRHEU 13:51
PROVIDERS: ATTEND Internal Medicine
DX: M25.50 Pain in unspecified joint (principal); R76.8 Other specified abnormal immunological findings in serum; R53.82 Chronic fatigue, unspecified

== ENCOUNTER → 2019-06-02 | Outpatient (REF) | payer MEDICARE, BC ==
[~2019-06-02] MED LIST changes: +VITA-243 PO; -VITA500T PO
[2019-06-02 11:38] LABS: ALBUMIN 3.7 GM/DL (3.2-5.2); BILIRUBIN,TOTAL 0.1 MG/DL (0.2-1.0); CALCIUM LEVEL 9.6 MG/DL (8.5-10.1); CHOLESTEROL RISK RATIO 3.907 (<5); CREATININE FOR GFR 1.14 MG/DL (0.55-1.30); GLOMERULAR FILTRATION RATE 51.9 (>51); POTASSIUM SERUM 4.5 MEQ/L (3.5-5.1); TOTAL PROTEIN 7.5 GM/DL (6.4-8.2)
[2019-06-02 11:51] LABS: HEMOGLOBIN A1c 8.7 %
== END ==
LOC: M SFHCCLAY 08:20
PROVIDERS: ATTEND Family Medicine
DX: E10.22 Type 1 diabetes mellitus with diabetic chronic kidney disease (principal); E78.2 Mixed hyperlipidemia

== ENCOUNTER → 2019-09-15 | Outpatient (REF) | payer MEDICARE, BC ==
[2019-11-01 00:57] LABS: ALBUMIN 3.7 GM/DL (3.2-5.2); ALT/SGPT 35 U/L (12-78); BILIRUBIN,DIRECT < 0.1 MG/DL (0.0-0.2); BILIRUBIN,TOTAL 0.2 MG/DL (0.2-1.0); BLOOD UREA NITROGEN 15 MG/DL (7-18); CARBON DIOXIDE LEVEL 28 MEQ/L (21-32); CHLORIDE LEVEL 111 MEQ/L (98-107); CHOLESTEROL LEVEL 197 MG/DL (<200); CHOLESTEROL RISK RATIO 3.716 (<5); CREATININE FOR GFR 1.07 MG/DL (0.55-1.30); GLOMERULAR FILTRATION RATE 55.7 (>51); GLUCOSE, FASTING 69 MG/DL (70-100); HDL CHOLESTEROL 53 MG/DL (>40); LDL CHOLESTEROL 105 MG/DL (<100); NON-HDL-C 144 MG/DL; POTASSIUM SERUM 4.1 MEQ/L (3.5-5.1); SODIUM LEVEL 142 MEQ/L (136-145); THYROID PEROXIDASE ANTIBODY > 1300.0 U/ML (<60.0); TOTAL PROTEIN 7.1 GM/DL (6.4-8.2); TRIGLYCERIDES LEVEL 193 MG/DL (<150)
[2019-11-01 00:58] LABS: MALB URINE SIEMENS 21.6 MG/L
== END ==
LOC: M LABDRAWC 10:35
PROVIDERS: ATTEND Internal Medicine Endocrinology, Diabetes & Metabolism
DX: E10.65 Type 1 diabetes mellitus with hyperglycemia (principal); E10.42 Type 1 diabetes mellitus with diabetic polyneuropathy

== ENCOUNTER → 2019-12-11 | Outpatient (CLI) | payer MEDICARE, BC ==
--- NOTE | 2019-12-11 12:14 | REP ---
INDICATION: SCREENING MAMMO. Family history breast cancer in maternal grandmother and sister. [facility] of [facility] cancer 16.2%. COMPARISON: 12/08/2018 as well as other prior exams. TECHNIQUE: Digital screening (2D) mammography was performed bilaterally. Additionally, breast tomosynthesis (3D mammography) was performed bilaterally in the CC and MLO projections and compared to the prior exam(s). FINDINGS: Mild scattered fibroglandular tissue is again seen bilaterally. Volpara breast density is be. There does appear to be a new fairly well-defined nodule slightly medially in the right breast measuring 7 mm in diameter. Otherwise I see no new mass or clustered microcalcifications bilaterally. IMPRESSION: BI-RADS category 0 incomplete mammogram. There is a 7 mm smoothly marginated nodule in the medial right breast mid 3rd. Recommend spot compression views and ultrasound to further evaluate. This mammogram was read with the assistance of [employer], an FDA approved computer aided detection system for mammography. Negative x-ray reports should not delay surgical consultation if a dominant or clinically suspicious mass is present. Not all breast cancers can be identified by mammography. Therefore, we recommend that you continue to perform regular breast self-examination and physical examination and then promptly contact your physician of any concerns or changes. Adenosis and dense breasts may obscure an underlying neoplasm. Patient letter M0. <Electronically signed by Sage Tay > 12/11/19 [id number]
== END ==
LOC: M WHC 10:11
PROVIDERS: ATTEND Nurse Practitioner Women's Health
DX: Z12.31 Encounter for screening mammogram for malignant neoplasm of breast (principal); Z80.3 Family history of malignant neoplasm of breast; N63.15 Unspecified lump in the right breast, overlapping quadrants
CPT/HCPCS: 77063; 77067; G0463

== ENCOUNTER → 2019-12-18 | Outpatient (CLI) | payer MEDICARE, BC ==
--- NOTE | 2019-12-18 10:29 | REP ---
INDICATION: ADDL VIEWS/RIGHT BREAST; RIGHT BREAST NODULE. Screening mammography December 11, 2019 was BI-RADS category 0 incomplete because of a 7 mm smoothly marginated nodule in the medial right breast. Diagnostic imaging was recommended. COMPARISON: Mammography December 11, 2019, December 08, 2018, and January 14, 2016. TECHNIQUE: Focal spot compression images are obtained in the CC, mL, and MLO projections.. FINDINGS: Focal spot-compression images show a nodular opacity in the superomedial quadrant of the right breast is less conspicuous than on the prior study. No nodule is seen on the true mL view. Scattered fibroglandular elements are noted. The Volpara volumetric breast density pattern is B. Focused right breast sonography: Scanning through the superior and medial quadrant of the right breast demonstrates head mildly heterogeneous fibroglandular background echotexture. There is a 6 x 4 x 3 mm cyst at approximately the 12 o'clock position which is felt to account for the mammographic opacity. No sonographically suspicious finding. IMPRESSION: BI-RADS category 2 benign findings. Right breast cyst. Repeat screening mammography recommended in 1 year. This patient's Tyrer-Cuzick lifetime breast cancer risk assessment score is 16.2%. This mammogram was interpreted with the aid of an FDA-approved computer-aided detection system. The patient letter being requested is M1. RECOMMENDATION: Repeat screening mammography recommended 1 year. <Electronically signed by Harry Adler > 12/18/19 [id number]
== END ==
LOC: M WHC 08:59
PROVIDERS: ATTEND Nurse Practitioner Women's Health
DX: R92.2 Inconclusive mammogram (principal)
CPT/HCPCS: 76642; 77065; G0279

== ENCOUNTER → 2019-12-19 | Outpatient (REF) | payer MEDICARE, BC ==
[2019-12-19 16:17] LABS: BASO % 0.5 % (0.0-1.0); EOS % 0.6 % (0.0-3.0); HEMOGLOBIN 11.4 g/dl (12.0-15.5); LYMPH # 1.9 10^3/uL (1.5-5.0); LYMPH % 30.4 % (24.0-44.0); MEAN CORPUSCULAR HGB CONC 31.7 g/dl (32.0-36.5); MEAN CORPUSCULAR VOLUME 91.6 fl (80.0-96.0); MONO # 0.4 10^3/uL (0.0-0.8); MONO % 7.1 % (0.0-5.0); NEUTROPHILS # 3.8 10^3/uL (1.5-8.5); NEUTROPHILS % 61.2 % (36.0-66.0); PLATELET COUNT, AUTOMATED 356 10^3/uL (150-450); RED BLOOD COUNT 3.93 10^6/uL (4.00-5.40); WHITE BLOOD COUNT 6.2 10^3/uL (4.0-10.0)
== END ==
LOC: M SFHCCLAY 11:22
PROVIDERS: ATTEND Family Medicine
DX: D64.9 Anemia, unspecified (principal)
CPT/HCPCS: 83540; 85025; G0463

== ENCOUNTER 2019-12-26 19:09 | Inpatient (IN) | payer MEDICARE, BC ==
[~2019-12-26] VITALS: Ht 160 cm; Wt 76.4 kg
[2019-12-26 20:22] LABS: BASO % 0.2 % (0.0-1.0); EOS % 0.2 % (0.0-3.0); HEMATOCRIT 35.3 % (36.0-47.0); HEMOGLOBIN 11.1 g/dl (12.0-15.5); LYMPH # 1.6 10^3/uL (1.5-5.0); LYMPH % 13.9 % (24.0-44.0); MEAN CORPUSCULAR HEMOGLOBIN 28.7 pg (27.0-33.0); MEAN CORPUSCULAR HGB CONC 31.4 g/dl (32.0-36.5); MEAN CORPUSCULAR VOLUME 91.2 fl (80.0-96.0); MONO # 0.6 10^3/uL (0.0-0.8); NEUTROPHILS # 9.3 10^3/uL (1.5-8.5); NEUTROPHILS % 80.4 % (36.0-66.0); PLATELET COUNT, AUTOMATED 297 10^3/uL (150-450); RED BLOOD COUNT 3.87 10^6/uL (4.00-5.40); WHITE BLOOD COUNT 11.5 10^3/uL (4.0-10.0)
[2019-12-26 20:49] LABS: HCG, SERUM QUALITATIVE NEGATIVE (NEGATIVE)
[2019-12-26 20:55] LABS: ACETAMINOPHEN LEVEL < 2.0 UG/ML (10.0-30.0); ALBUMIN 3.5 GM/DL (3.2-5.2); ALT/SGPT 34 U/L (12-78); BILIRUBIN,DIRECT < 0.1 MG/DL (0.0-0.2); BILIRUBIN,TOTAL 0.3 MG/DL (0.2-1.0); BLOOD UREA NITROGEN 14 MG/DL (7-18); CALCIUM LEVEL 9.1 MG/DL (8.8-10.2); CARBON DIOXIDE LEVEL 27 MEQ/L (21-32); CHLORIDE LEVEL 106 MEQ/L (98-107); CREATININE FOR GFR 1.21 MG/DL (0.55-1.30); ETHYL ALCOHOL (ETHANOL) < 0.003 % (0.000-0.010); GLOMERULAR FILTRATION RATE 48.3 (>45); GLUCOSE, FASTING 116 MG/DL (70-100); POTASSIUM SERUM 4.6 MEQ/L (3.5-5.1); SALICYLATE LEVEL < 1.7 MG/DL (5.0-30.0); SODIUM LEVEL 139 MEQ/L (136-145); TOTAL PROTEIN 7.1 GM/DL (6.4-8.2)
--- NOTE | 2019-12-26 21:28 | ECGEPIP ---
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
[2019-12-26] MEDS ORDERED: NS 1,000 ML IV ONE ×2 (22:15→23:30)
[2019-12-26] MEDS ORDERED: NOREPINEPHRINE BITARTRATE 8 MG in D5W 492 ML IV SCH (23:30)
--- NOTE | 2019-12-27 07:05 | REPVR ---
PROCEDURE INFORMATION: Exam: XR Chest, 1 View Exam date and time: 12/27/19 (6:32am) Age: 59 years old Clinical indication: Check central line placement TECHNIQUE: Imaging protocol: Portable CXR Views: 1 view COMPARISON: CT CHEST of 07/22/18 FINDINGS: Lungs: Unremarkable. No consolidation. Pleural space: No pleural effusions. No pneumothorax. Mild elevation of the right hemidiaphragm again seen. Heart/Mediastinum: Unremarkable. No cardiomegaly. Bones/joints: Unremarkable. Other findings: Right-sided jugular venous catheter, with its tip at the approximate atrio-caval junction. IMPRESSION: No acute findings. Right-sided jugular venous catheter, with its tip at the approximate atrio-caval junction. No pneumothorax. Electronically signed by: Flor Allen On 12/27/2019 07:05:42 AM
[2019-12-27] MEDS ORDERED: HYDR200T3 PO (07:36)
[2019-12-27] MEDS ORDERED: FURO20TA2 PO (07:36)
[2019-12-27] MEDS ORDERED: RAMI1CAP22 PO (07:36)
[2019-12-27] MEDS ORDERED: D31000TA2 PO (07:36)
[2019-12-27] MEDS ORDERED: METF-839 PO (07:36)
[2019-12-27] MEDS ORDERED: BIOT2500 PO (07:36)
[2019-12-27] MEDS ORDERED: RA T500C2 PO (07:36)
[2019-12-27] MEDS: NS 1,000 ML IV SCH ×2 (07:45→08:58)
[2019-12-27 08:02] LABS: TROPONIN I 0.02 NG/ML (< 0.10)
[2019-12-27 08:09] LABS: BASO % 0.4 % (0.0-1.0); EOS % 0.5 % (0.0-3.0); HEMATOCRIT 33.6 % (36.0-47.0); HEMOGLOBIN 10.6 g/dl (12.0-15.5); MEAN CORPUSCULAR HEMOGLOBIN 29.2 pg (27.0-33.0); MEAN CORPUSCULAR HGB CONC 31.5 g/dl (32.0-36.5); MEAN CORPUSCULAR VOLUME 92.6 fl (80.0-96.0); MONO # 0.5 10^3/uL (0.0-0.8); MONO % 5.4 % (0.0-5.0); NEUTROPHILS # 5.8 10^3/uL (1.5-8.5); NEUTROPHILS % 69.6 % (36.0-66.0); PLATELET COUNT, AUTOMATED 320 10^3/uL (150-450); RED BLOOD COUNT 3.63 10^6/uL (4.00-5.40); WHITE BLOOD COUNT 8.4 10^3/uL (4.0-10.0)
[2019-12-27 08:20] LABS: ALBUMIN 3.2 GM/DL (3.2-5.2); BILIRUBIN,TOTAL 0.2 MG/DL (0.2-1.0); C REACTIVE PROTEIN QUANTITATIV 0.34 MG/DL (0.00-0.30); CALCIUM LEVEL 8.4 MG/DL (8.8-10.2); CK-MB VALUE MASS 1.9 NG/ML (<3.6); CREATININE FOR GFR 1.02 MG/DL (0.55-1.30); GLOMERULAR FILTRATION RATE 58.8 (>45); MAGNESIUM LEVEL 1.7 MG/DL (1.8-2.4); MB/CK RELATIVE INDEX 1.58 (< OR =4); POTASSIUM SERUM 4.1 MEQ/L (3.5-5.1); TOTAL PROTEIN 6.7 GM/DL (6.4-8.2); TROPONIN I 0.02 NG/ML (< 0.10)
[2019-12-27 08:21] LABS: INR 0.97; PARTIAL THROMBOPLASTIN TIME 31.2 SECONDS (24.2-38.5); PROTHROMBIN TIME 13.1 SECONDS (12.5-14.3)
[2019-12-27 08:39] LABS: ERYTHROCYTE SEDIMENTATION RATE 29 mm/hr (0-30)
[2019-12-27 11:00] VITALS: BP 134/63
[2019-12-27 12:00] VITALS: BP 127/60
[2019-12-27] MEDS ORDERED: MAG SULF 1GM/100ML (MAG RUN) 1 GM in IV 1 EA IV ONE (12:00)
[2019-12-27] MEDS: ENOXAPARIN 40MG/0.4ML SYRINGE (J1650 PER 10MG) SC SCH (12:47)
[2019-12-27 14:00] VITALS: BP 124/56
[2019-12-27] MEDS ORDERED: ACETAMINOPHEN 500 MG TAB PO PRN (17:00)
[2019-12-27 17:16] VITALS: BP 144/64
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
[2019-12-27] MEDS ORDERED: SLF 3 ML SYR IV PRN (19:00)
[2019-12-27 20:00] VITALS: BP 123/91
[2019-12-27] MEDS ORDERED: GABAPENTIN 400 MG CAP PO SCH (21:00)
[2019-12-27] MEDS: SLF 3 ML SYR IV SCH (21:16)
[2019-12-27] MEDS: HYDROXYCHLOROQUINE 200 MG TAB PO SCH (21:16)
[2019-12-27] MEDS ORDERED: HUMULIN R U SQ SCH (21:45)
[2019-12-28 04:00] VITALS: BP 128/60
[2019-12-28] MEDS: SLF 3 ML SYR IV SCH ×2 (06:10→14:24)
[2019-12-28 08:00] VITALS: BP 131/61
[2019-12-28] MEDS ORDERED: ASCORBIC ACID 500 MG TAB PO SCH (09:00)
[2019-12-28] MEDS ORDERED: VITAMIN D 1,000 INTERNATIONAL UNITS TABLET PO SCH (09:00)
[2019-12-28] MEDS ORDERED: ATORVASTATIN 20 MG TAB PO SCH (09:00)
[2019-12-28] MEDS ORDERED: CLOPIDOGREL 75 MG TAB PO SCH (09:00)
[2019-12-28] MEDS: ENOXAPARIN 40MG/0.4ML SYRINGE (J1650 PER 10MG) SC SCH (09:20)
[2019-12-28] MEDS: HYDROXYCHLOROQUINE 200 MG TAB PO SCH (09:20)
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
[2019-12-28 16:00] VITALS: BP 137/67
[2019-12-28 18:10] LABS: HEMATOCRIT 31.6 % (36.0-47.0); HEMOGLOBIN 10.2 g/dl (12.0-15.5); MEAN CORPUSCULAR HEMOGLOBIN 29.7 pg (27.0-33.0); MEAN CORPUSCULAR HGB CONC 32.3 g/dl (32.0-36.5); MEAN CORPUSCULAR VOLUME 91.9 fl (80.0-96.0); PLATELET COUNT, AUTOMATED 279 10^3/uL (150-450); RED BLOOD COUNT 3.44 10^6/uL (4.00-5.40); WHITE BLOOD COUNT 7.2 10^3/uL (4.0-10.0)
[2019-12-28 18:40] LABS: CALCIUM LEVEL 8.9 MG/DL (8.8-10.2); CREATININE FOR GFR 1.01 MG/DL (0.55-1.30); GLOMERULAR FILTRATION RATE 59.5 (>45); POTASSIUM SERUM 3.9 MEQ/L (3.5-5.1)
--- NOTE | 2019-12-30 13:46 | ECGEPIP ---
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 No remarkable changes. Electronically Signed on 12-30-2019 13:45:54 EST by Kelvin De La Rosa
== END 2019-12-28 18:35 | DRG 918 ==
LOC: M ED 19:09 → M ED INP 12-27 07:09 → ENRESERV 12-27 10:09 → M ICU 12-27 11:00 → M PCU 12-27 17:25
PROVIDERS: ADMIT General Practice; ATTEND General Practice
DX: T43.212A Poisoning by selective serotonin and norepinephrine reuptake inhibitors, intentional self-harm, initial encounter (principal); T42.8X2A Poisoning by antiparkinsonism drugs and other central muscle-tone depressants, intentional self-harm, initial encounter; E10.42 Type 1 diabetes mellitus with diabetic polyneuropathy; E78.5 Hyperlipidemia, unspecified; K58.9 Irritable bowel syndrome, unspecified; E10.43 Type 1 diabetes mellitus with diabetic autonomic (poly)neuropathy; K31.84 Gastroparesis; I25.10 Atherosclerotic heart disease of native coronary artery without angina pectoris; N18.30 Chronic kidney disease, stage 3 unspecified; M06.4 Inflammatory polyarthropathy; E10.22 Type 1 diabetes mellitus with diabetic chronic kidney disease; M51.26 Other intervertebral disc displacement, lumbar region; R94.31 Abnormal electrocardiogram [ECG] [EKG]; Z95.5 Presence of coronary angioplasty implant and graft; E10.319 Type 1 diabetes mellitus with unspecified diabetic retinopathy without macular edema; Z87.891 Personal history of nicotine dependence; Z85.828 Personal history of other malignant neoplasm of skin; F32.89 Other specified depressive episodes; I95.2 Hypotension due to drugs; D63.1 Anemia in chronic kidney disease; Z79.4 Long term (current) use of insulin; Z79.899 Other long term (current) drug therapy; Z88.6 Allergy status to analgesic agent; Z88.8 Allergy status to other drugs, medicaments and biological substances; Z20.828 Contact with and (suspected) exposure to other viral communicable diseases; F43.10 Post-traumatic stress disorder, unspecified; Z62.819 Personal history of unspecified abuse in childhood

== ENCOUNTER 2019-12-28 16:16 | Inpatient (IN) | payer MEDICARE, BC ==
[~2019-12-28] VITALS: Ht 160 cm; Wt 71.4 kg
[~2019-12-28 16:16] MED LIST changes: +BIOT2500 PO; +D31000TA2 PO; +FURO20TA2 PO; +HYDR200T3 PO; +METF-839 PO; +RA T500C2 PO; +RAMI1CAP22 PO
[2019-12-28 18:45] VITALS: BP 148/80
[2019-12-28] MEDS ORDERED: [UNRECOGNIZED DRUG - OTHER] SC SCH (21:00)
[2019-12-28] MEDS ORDERED: ACETAMINOPHEN 500 MG TAB PO PRN (21:00)
[2019-12-28] MEDS: GABAPENTIN 400 MG CAP PO SCH (21:36)
[2019-12-28] MEDS: HYDROXYCHLOROQUINE 200 MG TAB PO SCH (21:46)
[2019-12-29 06:40] VITALS: BP 146/77
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
[2019-12-29] MEDS ORDERED: FLUBLOK(EGG FREE)(QUAD)INFLUENZA VACC 0.5ML SYRINGE 18YRS & OLDER IM ONE (09:00)
[2019-12-29] MEDS: ASCORBIC ACID 500 MG TAB PO SCH (09:12)
[2019-12-29] MEDS: VITAMIN D 1,000 INTERNATIONAL UNITS TABLET PO SCH (09:12)
[2019-12-29] MEDS: HYDROXYCHLOROQUINE 200 MG TAB PO SCH ×2 (09:12→20:28)
[2019-12-29] MEDS: ATORVASTATIN 20 MG TAB PO SCH (09:13)
[2019-12-29] MEDS: CLOPIDOGREL 75 MG TAB PO SCH (09:13)
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
[2019-12-29] MEDS ORDERED: DEXTROSE 50% 50 ML SYRINGE IV PRN (19:30)
[2019-12-29] MEDS ORDERED: GLUCAGON INJ 1MG VIAL SC PRN (19:30)
[2019-12-29] MEDS ORDERED: GLUCOSE 4GM CHEW TABLET PO PRN (19:30)
[2019-12-29] MEDS: GABAPENTIN 400 MG CAP PO SCH (20:28)
[2019-12-29] MEDS ORDERED: HumaLOG INSULIN (NovoLOG) PER UNIT SC SCH (21:00)
[2019-12-29] MEDS: HumaLOG INSULIN (NovoLOG) PER UNIT SC SCH (23:48)
[2019-12-30] MEDS: HumaLOG INSULIN (NovoLOG) PER UNIT SC SCH ×4 (06:00→21:00)
[2019-12-30 06:31] VITALS: BP 111/55
[2019-12-30] MEDS ORDERED: HumaLOG INSULIN (NovoLOG) PER UNIT SC SCH ×2 (07:30→21:00)
[2019-12-30] MEDS: ASCORBIC ACID 500 MG TAB PO SCH (09:20)
[2019-12-30] MEDS: ATORVASTATIN 20 MG TAB PO SCH (09:20)
[2019-12-30] MEDS: VITAMIN D 1,000 INTERNATIONAL UNITS TABLET PO SCH (09:20)
[2019-12-30] MEDS: HYDROXYCHLOROQUINE 200 MG TAB PO SCH ×2 (09:20→20:15)
[2019-12-30] MEDS: CLOPIDOGREL 75 MG TAB PO SCH (09:20)
--- NOTE | 2019-12-30 15:23 | ECGEPIP ---
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
[2019-12-30 16:00] VITALS: BP 140/68
[2019-12-30] MEDS: GABAPENTIN 400 MG CAP PO SCH (20:15)
[2019-12-31] MEDS: HumaLOG INSULIN (NovoLOG) PER UNIT SC SCH ×4 (06:48→21:00)
[2019-12-31 07:01] VITALS: BP 118/57
[2019-12-31] MEDS: CLOPIDOGREL 75 MG TAB PO SCH (08:20)
[2019-12-31] MEDS: VITAMIN D 1,000 INTERNATIONAL UNITS TABLET PO SCH (08:20)
[2019-12-31] MEDS: ATORVASTATIN 20 MG TAB PO SCH (08:20)
[2019-12-31] MEDS: ASCORBIC ACID 500 MG TAB PO SCH (08:20)
[2019-12-31] MEDS: HYDROXYCHLOROQUINE 200 MG TAB PO SCH ×2 (08:20→20:23)
[2019-12-31 18:45] VITALS: BP 126/68
[2019-12-31] MEDS: GABAPENTIN 400 MG CAP PO SCH (20:23)
[2020-01-01] MEDS: HumaLOG INSULIN (NovoLOG) PER UNIT SC SCH ×4 (07:13→20:32)
[2020-01-01 07:14] VITALS: BP 144/85
[2020-01-01] MEDS: VITAMIN D 1,000 INTERNATIONAL UNITS TABLET PO SCH (08:35)
[2020-01-01] MEDS: HYDROXYCHLOROQUINE 200 MG TAB PO SCH ×2 (08:35→20:31)
[2020-01-01] MEDS: CLOPIDOGREL 75 MG TAB PO SCH (08:35)
[2020-01-01] MEDS: ASCORBIC ACID 500 MG TAB PO SCH (08:35)
[2020-01-01] MEDS: ATORVASTATIN 20 MG TAB PO SCH (08:35)
--- NOTE | 2020-01-01 09:45 | MHIPNPDOC ---
[facility] Progress Note Progress Note DATE OF SERVICE: 01/01/20 HISTORY: The patient's met with today she reports that she is doing better over the weekend and that she has made good progress. She reports that she is disc ussed her emotions and was able to open up to her nurse about the difficulties of her sudden divorce. She reports that she is become coping with it and begun to discuss with her and trying to create and amenable solution and has begun to except his want in the relationship. She reports that she is going to stay with her sister and feels that counseling would be most helpful. She has been engaged on unit and generally pleasant. VITAL SIGNS: See below. NEW TEST RESULTS: EKG last showed QTC of 493. CURRENT MEDICATIONS: See below. MENTAL STATUS EXAMINATION: General: Well dressed with good hygiene Speech: Spontaneous and fluid Thought processes: Linear and logical Thought content: Future orientated Abstract reasoning, and computation: Intact Description of associations: Intact Description of abnormal or psychotic thoughts:Denies any suicidal or homicidal ideation. Denies any auditory or visual hallucinations. Does not appear to be responding to internal stimuli. Does not appear to be endorsing any bizarre or paranoid ideation. Judgment: Fair Insight: Fair Orientation: Alert and orientated 3 Recent and remote memory: Intact Attention span and concentration: Intact Fund of knowledge: Adequate Mood: "Okay" Affect: Euthymic with a full range DIAGNOSES: 1. Unspecified depressive disorder. 2. . 3. . ASSESSMENT: The patient appears to make great progress, her QTC is coming down nicely, although doesn't appear useful to start her on a antidepressant this time it appears in acute state of adjustment especially finding out about a want for a divorce after many years of marriage is likely creating the foci for her depression. Will defer at this time recommend against restarting trazodone due to QTC prolongation MANAGEMENT PLAN: We'll defer medications for now, repeat EKG tomorrow to ensure QTC is improving, will further engage the patient was safety planning, plans to live with her sister. Patient reports she will sign a release so that we can communicate a potential discharge plan and potentially discharge her tomorrow. TIME SPENT: 15 minutes. Vital Signs Vital Signs Date Time Temp Pulse Resp B/P (MAP) Pulse Ox O2 Delivery O2 Flow Rate FiO2 01/01/20 07:14 98.2 103 18 144/85 (104) 98 Room Air Laboratory Data 24H Labs Laboratory Tests 2 12/31/19 12:10: Bedside Glucose (Misc Panel) 229H 12/31/19 17:17: Bedside Glucose (Misc Panel) 158H 12/31/19 20:21: Bedside Glucose (Misc Panel) 220H 01/01/20 06:37: Bedside Glucose (Misc Panel) 213H Current Medications Current Medications Medications (Trade) Dose Ordered Sig/Estefany Route PRN Reason Start Time Stop Time Status Last Admin Dose Admin Acetaminophen (Tylenol Tab) 1,000 mg Q6HP PRN PO PAIN / FEVER 12/28/19 21:00 Ascorbic Acid (Vitamin C) 500 mg DAILY PO 12/29/19 09:00 01/01/20 08:35 Atorvastatin Calcium (Lipitor) 40 mg DAILY PO 12/29/19 09:00 01/01/20 08:35 Clopidogrel Bisulfate (PLAVix) 75 mg DAILY PO 12/29/19 09:00 01/01/20 08:35 Dextrose (Dextrose 50%) 25 ml ASDIRECTED PRN IV SEE LABEL COMMENTS 12/29/19 19:30 Gabapentin (Neurontin) 1,200 mg QHS PO 12/28/19 21:00 12/31/19 20:23 Glucagon (Glucagon) 1 mg ASDIRECTED PRN SC SEE LABEL COMMENTS 12/29/19 19:30 Glucose (Glucose) 16 GM ASDIRECTED PRN PO SEE LABEL COMMENTS 12/29/19 19:30 Home Med (Med Rec Complete!) ASDIRECTED XX 12/28/19 19:15 12/28/19 19:07 DC Hydroxychloroquine Sulfate (Plaquenil) 200 mg BID PO 12/28/19 21:00 01/01/20 08:35 Insulin Human Lispro (HumaLOG INSULIN) See Protocol Table AC SC 12/30/19 07:30 12/29/19 19:34 DC Insulin Human Lispro (HumaLOG INSULIN) See Protocol Table AC SC 12/31/19 07:30 01/01/20 07:13 Insulin Human Lispro (HumaLOG INSULIN) See Protocol Table ACHS SC 12/30/19 21:00 12/30/19 20:21 DC Insulin Human Lispro (HumaLOG INSULIN) See Protocol Table Q6H SC 12/30/19 00:00 12/30/19 19:47 DC 12/30/19 18:04 Insulin Human Lispro (HumaLOG INSULIN) See [facility] 12/29/19 21:00 12/29/19 19:34 DC Insulin Human Lispro (HumaLOG INSULIN) See [facility] 12/30/19 21:00 Miscellaneous (Unresolved Patient Own Med Order) SEE LABEL COMMENTS DAILY XX 12/28/19 09:00 12/29/19 05:35 DC Patient Own Medication (Patient'S Own Med) HUMILIN ru-500. USE ... ASDIRECTED VT 12/28/19 21:00 12/29/19 19:30 DC Vitamin D (Vitamin D) 1,000 units DAILY PO 12/29/19 09:00 01/01/20 08:35 Allergies Coded Allergies: aspirin (Verified Allergy, Intermediate, HIVES, 10/26/18) amitriptyline (Verified Adverse Reaction, Intermediate, severe mood behavior, 10/26/18) hydroxyzine (Verified Adverse Reaction, Intermediate, mood disorder, 12/26/19) nortriptyline (Verified Adverse Reaction, Intermediate, mood disorder, 12/26/19) pregabalin (Verified Adverse Reaction, Intermediate, suicidal thoughts, 12/26/19) quetiapine (Verified Adverse Reaction, Intermediate, angry outburts, 10/26/18) lactose (Verified Adverse Reaction, Mild, GI upset, 12/26/19) YAMEL CERVANTES DO Jan 01, 2020 09:45
[2020-01-01] MEDS ORDERED: MOM 30ML SUSPENSION UDC PO PRN (11:15)
[2020-01-01] MEDS: MAALOX 30 ML SUSP *UDC PO PRN ×2 (12:18→16:03)
--- NOTE | 2020-01-01 13:19 | MHIPN ---
DATE: 12/30/2019 VITAL SIGNS: Blood pressure 101/55, pulse 84, temperature 99. CHIEF COMPLAINT: Says feels better. SUBJECTIVE: She is seen for follow-up. She is seen in the presence of staff. She says that she has been feeling basically less depressed. Says sleep is fair. Appetite is okay. She does not . knows her sleep changed much. She says has asked for a divorce and she feels okay with that. She has not had any contact with her children. MENTAL STATUS EXAM: She is neat. She is cooperative. No agitation. No psychomotor retardation. She is coherent. Affect is somewhat restricted, but she participated in activities. Denies any suicidal thoughts or intents. No homicidal ideation or intents. No evidence of any psychosis. Cognition is grossly intact. Judgment and insight may be compromised. ASSESSMENT: Other specified depressive disorder. Post traumatic stress disorder quite possibly. Is depressed; quite possibly is minimizing her symptoms as well and her difficulties. PLAN: Continue current care, observations. I would suggest involving the patient in the unit. Will hold off on using an antidepressant for now. Also the patient should hold off on a major decision, such as divorce, till life is more steady, rather than during her current turmoil. Further recommendations will be made depending on the clinical picture. CHAZ
--- NOTE | 2020-01-01 13:22 | MHIPN ---
DATE: 12/31/2019 VITAL SIGNS: Blood pressure 118/57, pulse 81, temperature 98.7. CHIEF COMPLAINT: Says feels better. SUBJECTIVE: Is seen for follow-up in the presence of staff. Says feels better, has been in touch with others, including her , as well as a close friend, who is quite supportive, says that has gone well. Sleep is improved, says is eating okay. Also indicates she would have reached out to someone, like her close friend, who she has known for many years, should she feel intense the way she did. She says it was an impulsive act as well. MENTAL STATUS EXAM: Neat, cooperative, no agitation. No psychomotor retardation, she is coherent. Affect is broad, denies any thoughts of harming herself or anyone else, there is no evidence of any psychosis at present. Judgment and insight fair, possibly improved. PLAN: Continue current care, she seems to be doing better, but I would suggest obtaining collateral information. Will hold off on starting the scheduled psychotropic. Would suggest that she is referred to a therapist once she is discharged. Further recommendations will be made depending on the clinical picture, when she is seen by the assigned clinical tomorrow. CHAZ
[2020-01-01 16:54] VITALS: BP 135/71
[2020-01-01] MEDS: GABAPENTIN 400 MG CAP PO SCH (20:31)
[2020-01-02] MEDS: MAALOX 30 ML SUSP *UDC PO PRN ×2 (06:50→10:42)
[2020-01-02] MEDS: HumaLOG INSULIN (NovoLOG) PER UNIT SC SCH ×2 (06:51→12:11)
[2020-01-02] MEDS: CLOPIDOGREL 75 MG TAB PO SCH (08:27)
[2020-01-02] MEDS: HYDROXYCHLOROQUINE 200 MG TAB PO SCH (08:27)
[2020-01-02] MEDS: ASCORBIC ACID 500 MG TAB PO SCH (08:27)
[2020-01-02] MEDS: ATORVASTATIN 20 MG TAB PO SCH (08:28)
[2020-01-02] MEDS: VITAMIN D 1,000 INTERNATIONAL UNITS TABLET PO SCH (08:28)
--- NOTE | 2020-01-02 09:58 | MHDSPDOC ---
[facility] Discharge Summary Discharge Summary DATE OF ADMISSION: Dec 28, 2019 at 18:59 DATE OF DISCHARGE: Jan 02, 2020 at 13:20 DISCHARGE DIAGNOSES: Unspecified depressive disorder CONSULTANTS INVOLVED:[ None (basic hospitalist screening)] REASON FOR ADMISSION & TREATMENT AND PROGRESS ON THE UNIT : . The patient was admitted to the inpatient mental health unit after an overdose of trazodone, the patient maintained initially that this had not been a suicide attempt, but generally yielded this over time. She initially was somewhat guarded but made progress after discussion with her nurses and began to talk about her feelings related to the divorce. She reported that she had been quite shocked by the experience, she did well, however, was not started on medications as her QTC was too long, it was monitored dropping from 532 493 and eventually on discharge was at 430. After discussion with the patient of the risks and benefits of medication options versus therapy, she elected to try therapy and did not want to try and antidepressant. The patient made good progress and began to problem solve spoke to her about her feelings and worked with her sister to create a discharge plan where she would stay with her after she left. She was thankful and generally made good progress, recommended against restarting her home trazodone at later time may be more amenable to antidepressants DISCHARGE ASSESSMENT[improved] Legal status considerations: The patient at the time of discharge did not meet criteria for involuntary admission/extension due to having a [normal] mental status exam, [fair] insight into the situation, They are engaged in the discharge process, as well as being friendly and amenable in behavioral control and havent been engaging in any observed concerning behavior or ideation recently. They decline voluntary extension/admission at this time and must be discharged in good gelacio, as Im unable to make a case for holding the patient against their will. They may have historical risk factors of admissions and other interactions with psychiatry however, those are not modifiable from a clinical perspective. The patient will need to be discharged in good gelacio. MENTAL STATUS EXAMINATION ON DISCHARGE: [General: Well dressed with good hygiene Speech: Spontaneous and fluid Thought processes: Linear and logical Thought content: Future orientated Abstract reasoning, and computation: Intact Description of associations: Intact Description of abnormal or psychotic thoughts:Denies any suicidal or homicidal ideation. Denies any auditory or visual hallucinations. Does not appear to be responding to internal stimuli. Does not appear to be endorsing any bizarre or paranoid ideation. Judgment: fair Insight: fair Orientation: Alert and orientated 3 Recent and remote memory: Intact Attention span and concentration: Intact Fund of knowledge: Adequate Mood: "okay" Affect: Euthymic with a full range] PLAN/FOLLOWUP ARRANGEMENTS: Follow up appointments made (PCP and MH in 5 days of D/C date) and safety plan completed. Safety Planning aspects completed prior to discharge [Family contact completed, educated on safe practices, instructed on removal and mitigation of dangerous means] [RN reviewed crisis hotline information and other aspects to empower patient to access care in interim before next appointment.] The amount of time spent in the coordination of care for this patient was approximately 30 minutes. Vital Signs/I&Os Vital Signs Date Time Temp Pulse Resp B/P (MAP) Pulse Ox O2 Delivery O2 Flow Rate FiO2 01/01/20 16:54 98.3 81 16 135/71 (92) 01/01/20 07:14 98 Room Air Laboratory Data Labs 24H Laboratory Tests 2 01/01/20 12:13: Bedside Glucose (Misc Panel) 206H 01/01/20 17:01: Bedside Glucose (Misc Panel) 216H 01/01/20 20:31: Bedside Glucose (Misc Panel) 199H 01/02/20 06:17: Bedside Glucose (Misc Panel) 149H Medications Scheduled Ascorbic Acid (Vitamin C) 500 Mg Tab, 500 MG PO DAILY, (Reported) Atorvastatin Calcium (Atorvastatin Calcium) 40 Mg Tab, 40 MG PO DAILY, (Reported) Biotin (Biotin) 2,500 Mcg Capsule, 2,500 MCG PO DAILY, (Reported) Carvedilol (Carvedilol) 6.25 Mg Tab, 6.25 MG PO BID, (Reported) Cholecalciferol (Vitamin D3) (Vitamin D3) 1,000 Unit Tablet, 1,000 UNITS PO DAILY, (Reported) Clopidogrel Bisulfate (Plavix) 75 Mg Tab, 75 MG PO DAILY, (Reported) Dexlansoprazole (Dexilant) 60 Mg Cap, 60 MG PO DAILY, (Reported) Furosemide (Furosemide) 20 Mg Tablet, 40 MG PO DAILY, (Reported) Gabapentin (Gabapentin) 600 Mg Tab, 600 MG PO BID, (Reported) Gabapentin (Gabapentin) 600 Mg Tab, 1,200 MG PO QHS, (Reported) Hydroxychloroquine Sulfate (Hydroxychloroquine Sulfate) 200 Mg Tablet, 200 MG PO BID, (Reported) Insulin (Humulin R U-500) 1 Units/0.002 Ml Inj, 1 UNITS SC ASDIRECTED, (Reported) insulin pump Metformin HCl (Metformin HCl) 500 Mg Tablet, 1,000 MG PO DAILY, (Reported) Multivitamin (Multivitamins) 1 Each Tablet, 1 TAB PO DAILY, (Reported) Ramipril (Ramipril) 2.5 Mg Capsule, 2.5 MG PO DAILY, (Reported) Turmeric Root Extract (Turmeric) 500 Mg Capsule, 500 MG PO DAILY, (Reported) Scheduled PRN Acetaminophen (Acetaminophen) 500 Mg Tablet, 1,000 MG PO Q6HP PRN for PAIN, (Reported) Dicyclomine HCl (Dicyclomine HCl) 20 Mg Tab, 20 MG PO TID PRN for ABDOMINAL PAIN, (Reported) Allergies Coded Allergies: aspirin (Verified Allergy, Intermediate, HIVES, 10/26/18) amitriptyline (Verified Adverse Reaction, Intermediate, severe mood behavior, 10/26/18) hydroxyzine (Verified Adverse Reaction, Intermediate, mood disorder, 12/26/19) nortriptyline (Verified Adverse Reaction, Intermediate, mood disorder, 12/26/19) pregabalin (Verified Adverse Reaction, Intermediate, suicidal thoughts, 12/26/19) quetiapine (Verified Adverse Reaction, Intermediate, angry outburts, 10/26/18) lactose (Verified Adverse Reaction, Mild, GI upset, 12/26/19) YAMEL CERVANTES DO Jan 02, 2020 09:58
--- NOTE | 2020-01-03 19:24 | ECGEPIP ---
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
== END 2020-01-02 13:20 | disposition home or self-care (01) | DRG 881 ==
LOC: M PSY 18:59
PROVIDERS: ADMIT Psychiatry & Neurology Addiction Medicine; ATTEND Psychiatry & Neurology Addiction Medicine
DX: F32.9 Major depressive disorder, single episode, unspecified (principal); F43.12 Post-traumatic stress disorder, chronic; E11.51 Type 2 diabetes mellitus with diabetic peripheral angiopathy without gangrene; E78.5 Hyperlipidemia, unspecified; K58.9 Irritable bowel syndrome, unspecified; E28.2 Polycystic ovarian syndrome; I25.10 Atherosclerotic heart disease of native coronary artery without angina pectoris; M51.26 Other intervertebral disc displacement, lumbar region; I12.9 Hypertensive chronic kidney disease with stage 1 through stage 4 chronic kidney disease, or unspecified chronic kidney disease; K44.9 Diaphragmatic hernia without obstruction or gangrene; D64.9 Anemia, unspecified; N18.30 Chronic kidney disease, stage 3 unspecified; E11.22 Type 2 diabetes mellitus with diabetic chronic kidney disease; Z87.891 Personal history of nicotine dependence; Z95.5 Presence of coronary angioplasty implant and graft; Z85.828 Personal history of other malignant neoplasm of skin; Z79.4 Long term (current) use of insulin; Z79.02 Long term (current) use of antithrombotics/antiplatelets; Z79.899 Other long term (current) drug therapy; Z88.6 Allergy status to analgesic agent; Z88.8 Allergy status to other drugs, medicaments and biological substances

== ENCOUNTER → 2020-02-16 | Outpatient (REF) | payer MEDICARE, BC | LOC: M LAB REF 17:21 | PROVIDERS: ATTEND Dermatology | DX: D23.72 Other benign neoplasm of skin of left lower limb, including hip (principal) ==

== ENCOUNTER → 2020-06-07 | Outpatient (REF) | payer MEDICARE, BC | LOC: M SFHCCLAY 11:24 | PROVIDERS: ATTEND Physician Assistant | DX: R30.0 Dysuria (principal) | CPT/HCPCS: 81002; 87088; 87186; G0463 ==

== ENCOUNTER → 2020-07-31 | Outpatient (REF) | payer MEDICARE, BC ==
[2020-07-31 12:43] LABS: CREATININE, URINE 33.1 MG/DL; MALB URINE SIEMENS 5.9 MG/L; MAU/CREAT RATIO 17.8 MCG/MG (0.0-30.0)
[2020-07-31 12:47] LABS: ALBUMIN 3.8 GM/DL (3.2-5.2); ALT/SGPT 32 U/L (12-78); BILIRUBIN,DIRECT < 0.1 MG/DL (0.0-0.2); BILIRUBIN,TOTAL 0.2 MG/DL (0.2-1.0); CHOLESTEROL LEVEL 196 MG/DL (<200); HDL CHOLESTEROL 80 MG/DL (>40); LDL CHOLESTEROL 89 MG/DL (<100); NON-HDL-C 116 MG/DL; THYROID PEROXIDASE ANTIBODY 510.2 U/ML (<60.0); TOTAL PROTEIN 7.1 GM/DL (6.4-8.2); TRIGLYCERIDES LEVEL 134 MG/DL (<150)
[2020-07-31 12:55] LABS: HEMOGLOBIN A1c 7.8 %
[2020-08-01 08:09] LABS: LDL DIRECT 91 mg/dL (0-99)
== END ==
LOC: M LABDRAWC 11:13
PROVIDERS: ATTEND Nurse Practitioner Adult Health
DX: E10.65 Type 1 diabetes mellitus with hyperglycemia (principal)

== ENCOUNTER → 2020-08-15 | Outpatient (CLI) | payer MEDICARE, BC | LOC: M LABSMTC 11:41 | PROVIDERS: ATTEND Internal Medicine Cardiovascular Disease | DX: Z01.812 Encounter for preprocedural laboratory examination (principal); Z20.822 Contact with and (suspected) exposure to COVID-19; I25.118 Atherosclerotic heart disease of native coronary artery with other forms of angina pectoris ==

== ENCOUNTER → 2020-08-22 | Outpatient (REF) | payer MEDICARE, BC ==
[2020-08-22 12:47] LABS: CALCIUM LEVEL 9.6 MG/DL (8.8-10.2); CREATININE FOR GFR 1.29 MG/DL (0.55-1.30); GLOMERULAR FILTRATION RATE 44.9 (>45); POTASSIUM SERUM 4.9 MEQ/L (3.5-5.1)
== END ==
LOC: M SFHCCLAY 08:14
PROVIDERS: ATTEND Family Medicine
DX: E10.22 Type 1 diabetes mellitus with diabetic chronic kidney disease (principal)

== ENCOUNTER → 2020-09-10 | Outpatient (CLI) | payer MEDICARE, BC ==
--- NOTE | 2020-09-10 11:51 | REP ---
INDICATION: INFLAMMATORY POLYARTHROPATHY. COMPARISON: None. TECHNIQUE: Four views each wrist FINDINGS: Mild degenerative changes are seen in each side particularly affecting the carpometacarpal joint with slight asymmetric joint space narrowing and osteophytosis. This FX of the right wrist to a greater degree than the left. There is no evidence of an acute fracture or destructive osseous lesion. IMPRESSION: Degenerative changes as described above. <Electronically signed by Garo Elizondo > 09/10/20 [id number]
--- NOTE | 2020-09-10 12:29 | REP ---
INDICATION: INFLAMMATORY POLYARTHROPATHY COMPARISON: Left knee only 06/11/2016 TECHNIQUE: Multiple views each knee FINDINGS: Left knee: There is no change from the prior exam. There is mild patellofemoral joint space narrowing without development of significant marginal osteophytosis, fracture, or dislocation. Right knee: There is mild asymmetric patellofemoral joint space narrowing. There is no prominent marginal osteophytosis, fracture, dislocation, or subluxation. IMPRESSION: Chronic changes bilateral as described above. <Electronically signed by Garo Elizondo > 09/10/20 [id number]
--- NOTE | 2020-09-10 12:31 | REP ---
INDICATION: INFLAMMATORY POLYARTHROPATHY. COMPARISON: Left hip of 03/02/2018 TECHNIQUE: AP pelvis AP frog-lateral view each hip FINDINGS: The left hip is unchanged. There is minimal joint space narrowing status quo. Mild joint space narrowing is also seen involving the right hip without fracture, dislocation, subluxation, or buttressing. The femoral heads are spherical in shape and symmetric in appearance. IMPRESSION: Chronic changes as described above. <Electronically signed by Garo Elizondo > 09/10/20 [id number]
--- NOTE | 2020-09-10 12:33 | REP ---
INDICATION: INFLAMMATORY POLYARTHROPATHY. COMPARISON: None. TECHNIQUE: Four views of each hand were obtained. FINDINGS: There is no evidence of fracture or dislocation. There are no significant joint space abnormalities. There is no periarticular osteopenia or soft tissue swelling. IMPRESSION: 1. No evidence of acute injury. 2. No significant arthropathy. <Electronically signed by Wesley Cedeno > 09/10/20 [id number]
== END ==
LOC: M RAD 09:56
PROVIDERS: ATTEND Internal Medicine
DX: M19.031 Primary osteoarthritis, right wrist (principal); M19.032 Primary osteoarthritis, left wrist; M17.0 Bilateral primary osteoarthritis of knee; M16.0 Bilateral primary osteoarthritis of hip; M06.4 Inflammatory polyarthropathy; M25.50 Pain in unspecified joint; R76.8 Other specified abnormal immunological findings in serum; M79.7 Fibromyalgia; Z79.899 Other long term (current) drug therapy

== ENCOUNTER → 2020-09-10 | Outpatient (REF) | payer MEDICARE, BC ==
[2020-09-10 12:17] LABS: BASO % 0.5 % (0.0-1.0); EOS # 0.1 10^3/uL (0.0-0.5); EOS % 1.3 % (0.0-3.0); HEMATOCRIT 30.7 % (36.0-47.0); HEMOGLOBIN 9.7 g/dl (12.0-15.5); LYMPH # 1.7 10^3/uL (1.5-5.0); LYMPH % 27.2 % (24.0-44.0); MEAN CORPUSCULAR HEMOGLOBIN 28.7 pg (27.0-33.0); MEAN CORPUSCULAR HGB CONC 31.6 g/dl (32.0-36.5); MEAN CORPUSCULAR VOLUME 90.8 fl (80.0-96.0); MONO # 0.4 10^3/uL (0.0-0.8); MONO % 6.6 % (2.0-8.0); NEUTROPHILS # 4.1 10^3/uL (1.5-8.5); NEUTROPHILS % 64.2 % (36.0-66.0); PLATELET COUNT, AUTOMATED 368 10^3/uL (150-450); RED BLOOD COUNT 3.38 10^6/uL (4.00-5.40); WHITE BLOOD COUNT 6.4 10^3/uL (4.0-10.0)
[2020-09-10 12:32] LABS: APPEARANCE, URINE CLEAR (CLEAR); BACTERIA, URINE AUTO NEGATIVE (NEGATIVE); BILIRUBIN, URINE AUTO NEGATIVE (NEGATIVE); BLOOD, URINE BLOOD NEGATIVE (NEGATIVE); COLOR, URINE YELLOW (YELLOW); GLUCOSE, URINE (UA) AUTO NEGATIVE (NEGATIVE); KETONE, URINE AUTO NEGATIVE (NEGATIVE); LEUKOCYTE ESTERASE, URINE AUTO NEGATIVE (NEGATIVE); MUCUS, URINE SMALL (NEGATIVE); NITRITE, URINE AUTO NEGATIVE (NEGATIVE); PROTEIN, URINE AUTO NEGATIVE (NEGATIVE); RBC, URINE AUTO 0 /HPF (0-3); SQUAMOUS EPITHELIAL CELL UR AU 1 /HPF (0-6); UROBILINOGEN, URINE AUTO 0.2 mg/dL (0.0-2.0); WBC, URINE AUTO 0 /HPF (0-3)
[2020-09-10 12:44] LABS: TOTAL PROTEIN,RANDOM URINE 15.9 MG/DL (0.0-12.0)
[2020-09-10 12:51] LABS: C REACTIVE PROTEIN QUANTITATIV < 0.30 MG/DL (0.00-0.30); COMPLEMENT C3 149 MG/DL (90-180); COMPLEMENT C4 28 MG/DL (10-40); CPK CREATINE PHOSPHOKINASE 152 U/L (26-192); MAGNESIUM LEVEL 1.9 MG/DL (1.8-2.4); PHOSPHORUS LEVEL 4.4 MG/DL (2.5-4.9)
[2020-09-10 12:54] LABS: TOTAL 25(OH) VITAMIN D 44.3 NG/ML (30.0-100.0)
[2020-09-10 12:55] LABS: ERYTHROCYTE SEDIMENTATION RATE 52 mm/hr (0-30); VITAMIN B12 LEVEL 714 PG/ML (247-911)
[2020-09-11 14:27] LABS: DRVV SCREEN 39.9 SEC
[2020-09-11 14:32] LABS: PTT LUPUS TYPE ANTICOAG SCREEN 1.1 (0-1.2)
== END ==
LOC: M SFHCRHEU 09:05
PROVIDERS: ATTEND Internal Medicine
DX: R76.8 Other specified abnormal immunological findings in serum (principal); M79.7 Fibromyalgia; M06.4 Inflammatory polyarthropathy; Z79.899 Other long term (current) drug therapy

== ENCOUNTER → 2020-11-04 | Outpatient (CLI) | payer BC ==
[2020-11-04 20:13] LABS: APPEARANCE, URINE CLEAR (CLEAR); BACTERIA, URINE AUTO 3+ (NEGATIVE); BILIRUBIN, URINE AUTO NEGATIVE (NEGATIVE); BLOOD, URINE BLOOD NEGATIVE (NEGATIVE); COLOR, URINE YELLOW (YELLOW); GLUCOSE, URINE (UA) AUTO 1+ mg/dL (NEGATIVE); KETONE, URINE AUTO NEGATIVE (NEGATIVE); LEUKOCYTE ESTERASE, URINE AUTO TRACE (NEGATIVE); MUCUS, URINE SMALL (NEGATIVE); NITRITE, URINE AUTO NEGATIVE (NEGATIVE); PROTEIN, URINE AUTO NEGATIVE (NEGATIVE); RBC, URINE AUTO 0 /HPF (0-3); SPECIFIC GRAVITY URINE AUTO 1.014 (1.002-1.035); SQUAMOUS EPITHELIAL CELL UR AU 1 /HPF (0-6); TRANSITIONAL EPITHELIAL AUTO <1 /HPF; UROBILINOGEN, URINE AUTO 0.2 mg/dL (0.0-2.0); WBC, URINE AUTO 8 /HPF (0-3)
== END ==
LOC: M WUC 15:24
PROVIDERS: ATTEND Nurse Practitioner Family
DX: N39.0 Urinary tract infection, site not specified (principal)

== ENCOUNTER → 2020-11-06 | Outpatient (REF) | payer BC ==
[2020-11-06 16:59] LABS: MALB URINE SIEMENS 13.5 MG/L; MAU/CREAT RATIO 10.7 MCG/MG (0.0-30.0)
[2020-11-06 17:00] LABS: FREE T4 0.76 NG/DL (0.76-1.46); THYROID STIMULATING HORMONE 1.64 uIU/ML (0.358-3.740)
[2020-11-06 17:01] LABS: HEMOGLOBIN A1c 7.3 %; THYROID PEROXIDASE ANTIBODY 490.6 U/ML (<60.0)
== END ==
LOC: M LABDRAWC 15:53
DX: E10.65 Type 1 diabetes mellitus with hyperglycemia (principal)

== ENCOUNTER → 2020-12-19 | Outpatient (REF) | payer MEDICARE, BC | LOC: M LAB REF 11:08 | PROVIDERS: ATTEND Physician Assistant Medical | DX: R10.9 Unspecified abdominal pain (principal) ==

== ENCOUNTER → 2020-12-24 | Outpatient (CLI) | payer MEDICARE, BC ==
[~2020-12-24] MED LIST changes: +E-Z-GAS II EFFERVESCENT PACKET (SODIUM BICARB./CITRIC ACID/SIMETHICONE) As Ordered ONE; +E-Z-HD 98% w/w 340GM SUSP BTL As Ordered ONE; +E-Z-PAQUE 96% w/w SUSP 176GM BTL As Ordered ONE
--- NOTE | 2020-12-25 16:26 | REP ---
INDICATION: ABD PAIN. COMPARISON: None. TECHNIQUE: The procedure was performed under the direct supervision of Dr. Cedeno. The images were reviewed with Dr. Cedeno. Liquid barium and gas producing crystals were given in the erect position as well as liquid barium in the prone oblique position in order to perform a double contrast upper GI examination. Additionally liquid barium was given at the end of the examination in order to perform a small bowel follow through. A combination od fluoroscopy, spot films and last image hold technology was utilized, 2.6 minutes of fluoro time was utilized for this procedure. FINDINGS: The hvac manager film shows no organomegaly or pathological masses. The intestinal gas pattern is non-specific. There is a stimulator in place with the power pack overlying the left abdomen. The oral and pharyngeal stages of deglutition are unremarkable. During esophageal transport are tertiary waves demonstrated. There is no esophagitis, stricture or mucosal ring. There is a sliding-type hiatal hernia. There is gastroesophageal reflux demonstrated to above the level of the michael. Within the stomach there are multiple sub cm polyps identified. The stomach is otherwise unremarkable. The duodenal ro are normally outlined . The mucosal folds are smooth and regular. There is no duodenitis pancreatitis peptic ulcer disease or neoplasm. The visualized portion of the proximal small bowel appears normal in course and caliber. The barium column was followed through the small bowel to the level of the terminal ileum. Small bowel transit time is rapid as there is contrast seen in the cecum on the 0 minute film. During fluoroscopy gentle palpation shows all loops are freely movable and pliable. There are no fixed or angulated loops. The small bowel mucosal pattern is normal in course and caliber. There is no transition to suggest a partial small-bowel obstruction. Spot filming of the terminal ileum shows it to be unremarkable. IMPRESSION: 1. Tertiary waves. 2. There is a sliding-type hiatal hernia. There is gastroesophageal reflux demonstrated to above the level of the michael. 3. There are multiple sub cm polyps within the stomach. 4. Small bowel transit time is rapid as there is contrast seen in the cecum at the 0 minute film. <Electronically signed by Yahir Ibanez > 12/25/20 [id number] <Electronically signed by Wesley Cedeno > 12/25/20 [id number]
== END ==
LOC: M RAD 08:41
PROVIDERS: ATTEND Physician Assistant Medical
DX: R10.9 Unspecified abdominal pain (principal); K22.4 Dyskinesia of esophagus; K31.7 Polyp of stomach and duodenum; K44.9 Diaphragmatic hernia without obstruction or gangrene

== ENCOUNTER → 2021-02-13 | Outpatient (REF) | payer MEDICARE, BC ==
[~2021-02-13] MED LIST changes: -E-Z-GAS II EFFERVESCENT PACKET (SODIUM BICARB./CITRIC ACID/SIMETHICONE) As Ordered ONE; -E-Z-HD 98% w/w 340GM SUSP BTL As Ordered ONE; -E-Z-PAQUE 96% w/w SUSP 176GM BTL As Ordered ONE
[2021-02-13 16:23] LABS: HEMOGLOBIN A1c 8.3 %
== END ==
LOC: M LABDRAWC 15:23
PROVIDERS: ATTEND Nurse Practitioner Adult Health
DX: E10.65 Type 1 diabetes mellitus with hyperglycemia (principal)

== ENCOUNTER → 2021-02-27 | Outpatient (REF) | payer MEDICARE, BC ==
[~2021-02-27] MED LIST changes: -DICY20TA11 PO; +DICY20TA20 PO
== END ==
LOC: M SFHCWAGY 12:43
PROVIDERS: ATTEND Advanced Practice Midwife
DX: Z01.419 Encounter for gynecological examination (general) (routine) without abnormal findings (principal)

== ENCOUNTER → 2021-03-12 | Outpatient (CLI) | payer MEDICARE, BC | LOC: M WHC 08:04 | PROVIDERS: ATTEND Advanced Practice Midwife | DX: Z12.31 Encounter for screening mammogram for malignant neoplasm of breast (principal); D25.0 Submucous leiomyoma of uterus; Z78.0 Asymptomatic menopausal state; Z85.828 Personal history of other malignant neoplasm of skin ==

== ENCOUNTER → 2021-03-17 | Outpatient (REF) | payer MEDICARE, BC ==
[2021-03-17 12:43] LABS: BASO % 0.5 % (0.0-1.0); EOS # 0.1 10^3/uL (0.0-0.5); EOS % 1.4 % (0.0-3.0); HEMATOCRIT 35.2 % (36.0-47.0); HEMOGLOBIN 11.2 g/dl (12.0-15.5); LYMPH # 2.1 10^3/uL (1.5-5.0); MEAN CORPUSCULAR HEMOGLOBIN 28.9 pg (27.0-33.0); MEAN CORPUSCULAR HGB CONC 31.8 g/dl (32.0-36.5); MEAN CORPUSCULAR VOLUME 90.7 fl (80.0-96.0); MONO # 0.5 10^3/uL (0.0-0.8); NEUTROPHILS % 51.9 % (36.0-66.0); PLATELET COUNT, AUTOMATED 325 10^3/uL (150-450); RED BLOOD COUNT 3.88 10^6/uL (4.00-5.40); WHITE BLOOD COUNT 5.8 10^3/uL (4.0-10.0)
[2021-03-17 13:23] LABS: ALBUMIN 3.7 GM/DL (3.2-5.2); BILIRUBIN,TOTAL 0.2 MG/DL (0.2-1.0); CALCIUM LEVEL 9.4 MG/DL (8.8-10.2); CHOLESTEROL RISK RATIO 2.385 (<5); CREATININE FOR GFR 1.03 MG/DL (0.55-1.30); POTASSIUM SERUM 4.9 MEQ/L (3.5-5.1); TOTAL PROTEIN 7.1 GM/DL (6.4-8.2)
== END ==
LOC: M SFHCCLAY 09:13
PROVIDERS: ATTEND Family Medicine
DX: M06.4 Inflammatory polyarthropathy (principal); E10.43 Type 1 diabetes mellitus with diabetic autonomic (poly)neuropathy; E78.2 Mixed hyperlipidemia

== ENCOUNTER → 2021-07-04 | Outpatient (REF) | payer MEDICARE, BC ==
[~2021-07-04] MED LIST changes: -D31000TA2 PO; +VITA100093 PO
[2021-07-04 15:08] LABS: BASO % 0.6 % (0.0-1.0); EOS # 0.1 10^3/uL (0.0-0.5); EOS % 1.4 % (0.0-3.0); HEMATOCRIT 36.8 % (36.0-47.0); HEMOGLOBIN 11.7 g/dl (12.0-15.5); LYMPH % 38.4 % (24.0-44.0); MEAN CORPUSCULAR HGB CONC 31.8 g/dl (32.0-36.5); MEAN CORPUSCULAR VOLUME 91.3 fl (80.0-96.0); MONO # 0.4 10^3/uL (0.0-0.8); MONO % 6.8 % (2.0-8.0); NEUTROPHILS # 2.7 10^3/uL (1.5-8.5); NEUTROPHILS % 52.6 % (36.0-66.0); PLATELET COUNT, AUTOMATED 307 10^3/uL (150-450); RED BLOOD COUNT 4.03 10^6/uL (4.00-5.40); WHITE BLOOD COUNT 5.2 10^3/uL (4.0-10.0)
[2021-07-04 15:37] LABS: HEMOGLOBIN A1c 8.1 %
[2021-07-04 15:44] LABS: ALBUMIN 3.4 GM/DL (3.2-5.2); BILIRUBIN,TOTAL 0.2 MG/DL (0.2-1.0); CALCIUM LEVEL 9.8 MG/DL (8.8-10.2); CREATININE FOR GFR 1.05 MG/DL (0.55-1.30); FREE T4 0.73 NG/DL (0.76-1.46); GLOMERULAR FILTRATION RATE 56.7 (>45); POTASSIUM SERUM 4.5 MEQ/L (3.5-5.1); THYROID STIMULATING HORMONE 0.938 uIU/ML (0.358-3.740); TOTAL PROTEIN 6.8 GM/DL (6.4-8.2)
== END ==
LOC: M SFHCCLAY 09:11
PROVIDERS: ATTEND Family Medicine
DX: E10.43 Type 1 diabetes mellitus with diabetic autonomic (poly)neuropathy (principal); D64.9 Anemia, unspecified; E06.3 Autoimmune thyroiditis; M06.4 Inflammatory polyarthropathy; L40.9 Psoriasis, unspecified

== ENCOUNTER → 2021-10-27 | Outpatient (REF) | payer MEDICARE, BC | LOC: M SFHCCLAY 07:47 | PROVIDERS: ATTEND Family Medicine | DX: R35.0 Frequency of micturition (principal) ==

== ENCOUNTER → 2021-10-30 | Outpatient (REF) | payer MEDICARE, BC ==
[2021-10-30 17:15] LABS: BASO % 0.4 % (0.0-1.0); EOS # 0.4 10^3/uL (0.0-0.5); EOS % 4.6 % (0.0-3.0); HEMATOCRIT 36.6 % (36.0-47.0); HEMOGLOBIN 11.7 g/dl (12.0-15.5); LYMPH # 1.6 10^3/uL (1.5-5.0); LYMPH % 20.2 % (24.0-44.0); MEAN CORPUSCULAR HEMOGLOBIN 30.2 pg (27.0-33.0); MEAN CORPUSCULAR VOLUME 94.3 fl (80.0-96.0); MONO # 0.7 10^3/uL (0.0-0.8); MONO % 8.5 % (2.0-8.0); NEUTROPHILS # 5.1 10^3/uL (1.5-8.5); PLATELET COUNT, AUTOMATED 338 10^3/uL (150-450); RED BLOOD COUNT 3.88 10^6/uL (4.00-5.40); WHITE BLOOD COUNT 7.8 10^3/uL (4.0-10.0)
[2021-10-30 17:22] LABS: ALBUMIN 3.6 GM/DL (3.2-5.2); ALT/SGPT 46 U/L (12-78); BILIRUBIN,DIRECT < 0.1 MG/DL (0.0-0.2); BILIRUBIN,TOTAL 0.4 MG/DL (0.2-1.0); BLOOD UREA NITROGEN 16 MG/DL (7-18); C REACTIVE PROTEIN QUANTITATIV 4.29 MG/DL (0.00-0.30); CALCIUM LEVEL 9.2 MG/DL (8.8-10.2); CARBON DIOXIDE LEVEL 30 MEQ/L (21-32); CHLORIDE LEVEL 105 MEQ/L (98-107); CREATININE FOR GFR 1.41 MG/DL (0.55-1.30); GLOMERULAR FILTRATION RATE 40.2 (>45); GLUCOSE, FASTING 92 MG/DL (70-100); POTASSIUM SERUM 4.1 MEQ/L (3.5-5.1); SODIUM LEVEL 140 MEQ/L (136-145); TOTAL PROTEIN 7.1 GM/DL (6.4-8.2)
[2021-10-30 17:42] LABS: HEPATITIS B SURFACE ANTIBODY NEGATIVE (POSITIVE)
[2021-10-30 17:53] LABS: HEPATITIS B SURFACE ANTIGEN NEGATIVE (NEGATIVE)
[2021-10-30 17:58] LABS: ERYTHROCYTE SEDIMENTATION RATE 49 mm/hr (0-30)
[2021-10-30 18:21] LABS: HEPATITIS C VIRUS ABY INDEX < 0.0 INDEX (<0.8)
== END ==
LOC: M SFHCRHEU 09:47
PROVIDERS: ATTEND Internal Medicine
DX: L40.50 Arthropathic psoriasis, unspecified (principal); Z11.59 Encounter for screening for other viral diseases

== ENCOUNTER → 2021-12-10 | Outpatient (CLI) | payer MEDICARE, BC ==
[~2021-12-10] MED LIST changes: -CILO50TA PO; +CILO50TA2 PO; +CLOP75TA99 PO; -PLAV1TAB2 PO
== END ==
LOC: M RAD 06:31
PROVIDERS: ATTEND Internal Medicine Gastroenterology
DX: E11.43 Type 2 diabetes mellitus with diabetic autonomic (poly)neuropathy (principal); R10.13 Epigastric pain; K22.2 Esophageal obstruction; R13.10 Dysphagia, unspecified

== ENCOUNTER → 2022-01-26 | Outpatient (REF) | payer MEDICARE, BC ==
[2022-01-26 18:06] LABS: CREATININE FOR GFR 1.19 MG/DL (0.55-1.30); GLOMERULAR FILTRATION RATE 48.9 (>45)
== END ==
LOC: M LABDRAWC 16:52
DX: K55.1 Chronic vascular disorders of intestine (principal)

== ENCOUNTER → 2022-01-28 | Outpatient (CLI) | payer MEDICARE, BC ==
[~2022-01-28] MED LIST changes: +ISOVUE-370 76% 100ML VIAL As Ordered ONE
== END ==
LOC: M RAD 17:26
DX: K55.1 Chronic vascular disorders of intestine (principal)
CPT/HCPCS: 74175; Q9967

== ENCOUNTER → 2022-05-07 | Outpatient (REF) | payer MEDICARE, BC ==
[~2022-05-07] MED LIST changes: -ISOVUE-370 76% 100ML VIAL As Ordered ONE
[2022-05-07 12:42] LABS: THYROID STIMULATING HORMONE 2.233 uIU/ML (0.55-4.78); TOTAL T3 99.7 NG/DL (60.0-181.0)
[2022-05-07 12:44] LABS: HEMOGLOBIN A1c 8.8 % (4.0-6.0)
[2022-05-07 12:45] LABS: ALBUMIN 3.6 G/DL (3.2-5.2); BILIRUBIN,TOTAL 0.2 MG/DL (0.3-1.2); CALCIUM LEVEL 9.4 MG/DL (8.3-10.6); CHOLESTEROL RISK RATIO 2.96 (<5); CREATININE FOR GFR 1.23 MG/DL (0.55-1.30); FREE T4 0.81 NG/DL (0.89-1.76); GLOMERULAR FILTRATION RATE 47.1 (>45); HDL CHOLESTEROL 62.8 MG/DL (>40); NON-HDL-C 123.2 MG/DL; POTASSIUM SERUM 4.5 MMOL/L (3.5-5.1); TOTAL PROTEIN 6.8 G/DL (5.7-8.2)
== END ==
LOC: M SFHCCLAY 07:28
PROVIDERS: ATTEND Family Medicine
DX: E78.2 Mixed hyperlipidemia (principal); E10.43 Type 1 diabetes mellitus with diabetic autonomic (poly)neuropathy; E06.3 Autoimmune thyroiditis

== ENCOUNTER → 2022-08-13 | Outpatient (REF) | payer MEDICARE, BC ==
[~2022-08-13] MED LIST changes: -HYDR200T3 PO; +HYDR200T46 PO
[2022-08-13 18:18] LABS: ALBUMIN 3.8 G/DL (3.2-5.2); BILIRUBIN,TOTAL 0.3 MG/DL (0.3-1.2); CALCIUM LEVEL 9.4 MG/DL (8.3-10.6); CREATININE FOR GFR 1.3 MG/DL (0.55-1.30); GLOMERULAR FILTRATION RATE 44.2 (>45); POTASSIUM SERUM 4.8 MMOL/L (3.5-5.1)
[2022-08-13 18:22] LABS: FREE T4 0.83 NG/DL (0.89-1.76); THYROID STIMULATING HORMONE 2.083 uIU/ML (0.55-4.78); TOTAL T3 111.6 NG/DL (60.0-181.0)
[2022-08-13 18:24] LABS: HEMATOCRIT 37.2 % (36.0-47.0); HEMOGLOBIN 12.1 g/dl (12.0-15.5); MEAN CORPUSCULAR HEMOGLOBIN 29.6 pg (27.0-33.0); MEAN CORPUSCULAR HGB CONC 32.5 g/dl (32.0-36.5); PLATELET COUNT, AUTOMATED 374 10^3/uL (150-450); RED BLOOD COUNT 4.09 10^6/uL (4.00-5.40); WHITE BLOOD COUNT 7.2 10^3/uL (4.0-10.0)
[2022-08-13 18:29] LABS: HEMOGLOBIN A1c 9.1 % (4.0-6.0)
== END ==
LOC: M SFHCCLAY 10:04
PROVIDERS: ATTEND Family Medicine
DX: D64.9 Anemia, unspecified (principal); E10.43 Type 1 diabetes mellitus with diabetic autonomic (poly)neuropathy; E06.3 Autoimmune thyroiditis

== ENCOUNTER → 2023-03-25 | Outpatient (REF) | payer MEDICARE, BC ==
[2023-03-25 12:48] LABS: ALBUMIN 3.5 G/DL (3.2-5.2); BILIRUBIN,TOTAL 0.2 MG/DL (0.3-1.2); CALCIUM LEVEL 9.6 MG/DL (8.3-10.6); CHOLESTEROL RISK RATIO 2.89 (<5); CREATININE FOR GFR 1.34 MG/DL (0.55-1.30); GLOMERULAR FILTRATION RATE 42.5 (>45); HDL CHOLESTEROL 56.6 MG/DL (>40); LDL CHOLESTEROL 80.4 MG/DL (<100); NON-HDL-C 107.4 MG/DL; POTASSIUM SERUM 4.1 MMOL/L (3.5-5.1); TOTAL PROTEIN 6.5 G/DL (5.7-8.2)
[2023-03-25 12:51] LABS: THYROID STIMULATING HORMONE 2.144 uIU/ML (0.55-4.78)
[2023-03-25 13:10] LABS: HEMOGLOBIN A1c 8.4 % (4.0-6.0)
[2023-03-25 13:13] LABS: CREATININE, URINE 156.2 MG/DL
[2023-03-25 13:14] LABS: MAU/CREAT RATIO 7.6 MCG/MG (0.0-30.0)
== END ==
LOC: M LABDRAWC 12:08
PROVIDERS: ATTEND Physician Assistant
DX: E10.65 Type 1 diabetes mellitus with hyperglycemia (principal)

== ENCOUNTER → 2023-03-25 | Outpatient (REF) | payer MEDICARE, BC ==
[2023-03-25 12:50] LABS: MAGNESIUM LEVEL 1.7 MG/DL (1.8-2.4); PHOSPHORUS LEVEL 4.7 MG/DL (2.4-5.1)
[2023-03-25 12:51] LABS: TOTAL 25(OH) VITAMIN D 77.8 NG/ML (20.0-100.0)
== END ==
LOC: M SFHCRHEU 07:28
PROVIDERS: ATTEND Internal Medicine
DX: M79.10 Myalgia, unspecified site (principal)

== ENCOUNTER → 2023-05-11 | Outpatient (REF) | payer MEDICARE, BC ==
[2023-05-11 14:21] LABS: MAGNESIUM LEVEL 1.7 MG/DL (1.8-2.4)
[2023-05-11 14:27] LABS: TOTAL 25(OH) VITAMIN D 70.9 NG/ML (20.0-100.0)
== END ==
LOC: M SFHCCLAY 10:41
PROVIDERS: ATTEND Internal Medicine
DX: M79.10 Myalgia, unspecified site (principal); Z79.899 Other long term (current) drug therapy

== ENCOUNTER → 2023-05-14 | Outpatient (CLI) | payer MEDICARE, BC ==
[~2023-05-14] MED LIST changes: +TIZA4CAP3 PO; -TIZA4CAP6 PO
== END ==
LOC: M WHC 14:00
PROVIDERS: ATTEND Advanced Practice Midwife
DX: Z12.31 Encounter for screening mammogram for malignant neoplasm of breast (principal)

== ENCOUNTER → 2023-05-14 | Outpatient (REF) | payer MEDICARE, BC | LOC: M PLALAB 14:24 | PROVIDERS: ATTEND Advanced Practice Midwife | DX: N94.9 Unspecified condition associated with female genital organs and menstrual cycle (principal); R10.2 Pelvic and perineal pain ==

== ENCOUNTER → 2023-07-23 | Outpatient (CLI) | payer MEDICARE, BC ==
[~2023-07-23] MED LIST changes: +RAMI1.258 PO; -RAMI1CAP21 PO; -RAMI1CAP22 PO; +RAMI2.5C42 PO
[2023-07-23 19:15] LABS: CPK CREATINE PHOSPHOKINASE 583 U/L (34-145)
[2023-07-23 19:16] LABS: BLOOD UREA NITROGEN 26 MG/DL (9-23); CALCIUM LEVEL 9.8 MG/DL (8.3-10.6); CARBON DIOXIDE LEVEL 35 MMOL/L (20-31); CHLORIDE LEVEL 102 MMOL/L (98-107); CREATININE FOR GFR 1.46 MG/DL (0.55-1.30); GLOMERULAR FILTRATION RATE 38.5 (>45); GLUCOSE, FASTING 53 MG/DL (74-106); MAGNESIUM LEVEL 1.9 MG/DL (1.8-2.4); POTASSIUM SERUM 3.8 MMOL/L (3.5-5.1); SODIUM LEVEL 141 MMOL/L (136-145)
[2023-07-23 19:18] LABS: TOTAL 25(OH) VITAMIN D 56.9 NG/ML (20.0-100.0)
[2023-07-23 19:22] LABS: VITAMIN B12 LEVEL > 2000 PG/ML (211-911)
== END ==
LOC: M LAB 18:15
PROVIDERS: ATTEND Internal Medicine
DX: N18.32 Chronic kidney disease, stage 3b (principal); R74.8 Abnormal levels of other serum enzymes; M79.10 Myalgia, unspecified site; R79.0 Abnormal level of blood mineral

== ENCOUNTER → 2023-08-04 | Outpatient (REF) | payer MEDICARE, BC | LOC: M SFHCWAGY 15:12 | PROVIDERS: ATTEND Advanced Practice Midwife | DX: L29.2 Pruritus vulvae (principal) ==

== ENCOUNTER → 2023-09-09 | Outpatient (CLI) | payer MEDICARE, BC | LOC: M CLY 10:53 | PROVIDERS: ATTEND Family Medicine | DX: M79.671 Pain in right foot (principal) ==

== ENCOUNTER → 2023-09-20 | Outpatient (CLI) | payer MEDICARE, BC | LOC: M CLY 07:38 | PROVIDERS: ATTEND Family Medicine | DX: M79.671 Pain in right foot (principal); E10.65 Type 1 diabetes mellitus with hyperglycemia ==

== ENCOUNTER → 2023-09-20 | Outpatient (REF) | payer MEDICARE, BC ==
[2023-09-20 13:01] LABS: HEMOGLOBIN A1c 6.6 % (4.0-6.0)
== END ==
LOC: M LABDRAWC 11:14
PROVIDERS: ATTEND Internal Medicine Endocrinology, Diabetes & Metabolism
DX: E10.65 Type 1 diabetes mellitus with hyperglycemia (principal)

== ENCOUNTER → 2023-10-05 | Outpatient (CLI) | payer MEDICARE, BC | LOC: M PLAIMG 13:37 | PROVIDERS: ATTEND Family Medicine | DX: M79.671 Pain in right foot (principal) ==

== ENCOUNTER → 2023-10-15 | Outpatient (REF) | payer MEDICARE, BC ==
[~2023-10-15] MED LIST changes: +GABA-1490 PO; -GABA600T4 PO
== END ==
LOC: M SFHCRHEU 10:17
PROVIDERS: ATTEND Internal Medicine
DX: E61.2 Magnesium deficiency (principal)

== ENCOUNTER → 2023-11-23 | Outpatient (REF) | payer MEDICARE, BC ==
[2023-11-23 18:56] LABS: CALCIUM LEVEL 10.1 MG/DL (8.3-10.6); CREATININE FOR GFR 1.51 MG/DL (0.55-1.30); GLOMERULAR FILTRATION RATE 36.9 (>45); POTASSIUM SERUM 4.9 MMOL/L (3.5-5.1)
== END ==
LOC: M LABDRAWC 17:47
PROVIDERS: ATTEND Physician Assistant
DX: E10.65 Type 1 diabetes mellitus with hyperglycemia (principal)

== ENCOUNTER → 2024-01-10 | Outpatient (REF) | payer MEDICARE, BC ==
[2024-01-10 17:30] LABS: ALBUMIN 3.7 G/DL (3.2-5.2); BILIRUBIN,TOTAL 0.4 MG/DL (0.3-1.2); CHOLESTEROL RISK RATIO 2.72 (<5); CREATININE FOR GFR 1.19 MG/DL (0.55-1.30); GLOMERULAR FILTRATION RATE 48.6 (>45); HDL CHOLESTEROL 66.7 MG/DL (>40); LDL CHOLESTEROL 95.1 MG/DL (<100); NON-HDL-C 115.3 MG/DL; POTASSIUM SERUM 4.2 MMOL/L (3.5-5.1); TOTAL PROTEIN 6.6 G/DL (5.7-8.2)
[2024-01-10 17:50] LABS: HEMOGLOBIN A1c 5.5 % (4.0-6.0)
== END ==
LOC: M SFHCCLAY 09:05
PROVIDERS: ATTEND Family Medicine
DX: E78.2 Mixed hyperlipidemia (principal); N18.32 Chronic kidney disease, stage 3b; D64.9 Anemia, unspecified; E10.22 Type 1 diabetes mellitus with diabetic chronic kidney disease

== ENCOUNTER → 2024-05-11 | Outpatient (REF) | payer MEDICARE, BC ==
[2024-05-11 18:46] LABS: THYROID STIMULATING HORMONE 1.661 uIU/ML (0.55-4.78)
[2024-05-11 18:48] LABS: FREE T4 1.02 NG/DL (0.89-1.76)
== END ==
LOC: M LABDRAWC 17:30
PROVIDERS: ATTEND Physician Assistant
DX: E10.8 Type 1 diabetes mellitus with unspecified complications (principal); Z96.41 Presence of insulin pump (external) (internal)

== ENCOUNTER → 2024-05-18 | Outpatient (REF) | payer MEDICARE, BC ==
[2024-05-18 12:43] LABS: HEMATOCRIT 31.7 % (36.0-47.0); HEMOGLOBIN 10.3 g/dl (12.0-15.5); MEAN CORPUSCULAR HEMOGLOBIN 30.3 pg (27.0-33.0); MEAN CORPUSCULAR HGB CONC 32.5 g/dl (32.0-36.5); MEAN CORPUSCULAR VOLUME 93.2 fl (80.0-96.0); PLATELET COUNT, AUTOMATED 308 10^3/uL (150-450); WHITE BLOOD COUNT 5.1 10^3/uL (4.0-10.0)
[2024-05-18 13:12] LABS: FERRITIN 252.8 NG/ML (7.3-270.7)
[2024-05-18 13:38] LABS: HEMOGLOBIN A1c 4.6 % (4.0-6.0)
== END ==
LOC: M SFHCCLAY 08:23
PROVIDERS: ATTEND Family Medicine
DX: D64.9 Anemia, unspecified (principal); E10.22 Type 1 diabetes mellitus with diabetic chronic kidney disease

== ENCOUNTER → 2024-06-16 | Outpatient (CLI) | payer MEDICARE, BC | LOC: M WHC 13:18 | PROVIDERS: ATTEND Advanced Practice Midwife | DX: Z12.31 Encounter for screening mammogram for malignant neoplasm of breast (principal); Z80.3 Family history of malignant neoplasm of breast; R92.323 Mammographic fibroglandular density, bilateral breasts; Z12.4 Encounter for screening for malignant neoplasm of cervix; Z13.820 Encounter for screening for osteoporosis ==

== ENCOUNTER → 2024-06-16 | Outpatient (REF) | payer MEDICARE, BC ==
[2024-06-20 14:12] LABS: HPV APTIMA Not Detected (Not Detected)
== END ==
LOC: M SFHCWAGY 15:22
PROVIDERS: ATTEND Advanced Practice Midwife
DX: Z12.4 Encounter for screening for malignant neoplasm of cervix (principal)
CPT/HCPCS: 87624; G0123

== ENCOUNTER → 2024-06-16 | Outpatient (REF) | payer MEDICARE, BC | LOC: M PLALAB 14:07 | PROVIDERS: ATTEND Advanced Practice Midwife | DX: Z12.4 Encounter for screening for malignant neoplasm of cervix (principal); Z11.51 Encounter for screening for human papillomavirus (HPV) ==

== ENCOUNTER → 2024-09-14 | Outpatient (CLI) | payer MEDICARE, BC ==
[~2024-09-14] MED LIST changes: -RA T500C2 PO; +TURM500C10 PO
== END ==
LOC: M RAD 09:10
PROVIDERS: ATTEND Internal Medicine
DX: M79.641 Pain in right hand (principal); M79.642 Pain in left hand; Z53.9 Procedure and treatment not carried out, unspecified reason

== ENCOUNTER → 2024-09-29 | Outpatient (CLI) | payer MEDICARE, BC | LOC: M PLAIMG 11:18 | PROVIDERS: ATTEND Internal Medicine | DX: M19.031 Primary osteoarthritis, right wrist (principal); M19.032 Primary osteoarthritis, left wrist; M19.041 Primary osteoarthritis, right hand; M19.042 Primary osteoarthritis, left hand ==

== ENCOUNTER → 2024-10-17 | Outpatient (REF) | payer MEDICARE, BC ==
[2024-10-17 16:04] LABS: C REACTIVE PROTEIN QUANTITATIV < 0.50 MG/DL (<1.0)
[2024-10-17 16:05] LABS: ALT/SGPT 21 U/L (7.0-40); AST/SGOT 24 U/L (<34); CALCIUM LEVEL 9.3 MG/DL (8.3-10.6); CARBON DIOXIDE LEVEL 31 MMOL/L (20-31); CHLORIDE LEVEL 101 MMOL/L (98-107); CREATININE FOR GFR 0.92 MG/DL (0.55-1.30); GLOMERULAR FILTRATION RATE 69.1 (>45); POTASSIUM SERUM 4.3 MMOL/L (3.5-5.1); SODIUM LEVEL 139 MMOL/L (136-145)
[2024-10-17 16:07] LABS: BASO # 0.0 10^3/uL (0.0-0.2); BASO % 0.6 % (0.0-1.0); EOS # 0.1 10^3/uL (0.0-0.5); EOS % 1.2 % (0.0-3.0); HEPATITIS B SURFACE ANTIBODY NEGATIVE (POSITIVE); LYMPH # 2.8 10^3/uL (1.5-5.0); LYMPH % 54.9 % (24.0-44.0); MONO # 0.3 10^3/uL (0.0-0.8); MONO % 5.3 % (2.0-8.0); NEUTROPHILS # 1.9 10^3/uL (1.5-8.5); NEUTROPHILS % 38.0 % (36.0-66.0); PLATELET COUNT, AUTOMATED 289 10^3/uL (150-450)
[2024-10-17 16:20] LABS: ERYTHROCYTE SEDIMENTATION RATE 6 mm/hr (0-30)
[2024-10-17 16:40] LABS: HEPATITIS C VIRUS ABY INDEX 0.05 INDEX (<0.8)
== END ==
LOC: M SFHCRHEU 13:37
PROVIDERS: ATTEND Internal Medicine
DX: L40.50 Arthropathic psoriasis, unspecified (principal); Z11.59 Encounter for screening for other viral diseases

== ENCOUNTER → 2024-10-25 | Outpatient (REF) | payer MEDICARE, BC ==
[2024-10-25 13:25] LABS: APPEARANCE, URINE CLEAR (CLEAR); BACTERIA, URINE AUTO NEGATIVE (NEGATIVE); BILIRUBIN, URINE AUTO NEGATIVE (NEGATIVE); BLOOD, URINE BLOOD NEGATIVE (NEGATIVE); GLUCOSE, URINE (UA) AUTO NEGATIVE (NEGATIVE); KETONE, URINE AUTO NEGATIVE (NEGATIVE); LEUKOCYTE ESTERASE, URINE AUTO NEGATIVE (NEGATIVE); NITRITE, URINE AUTO NEGATIVE (NEGATIVE); PROTEIN, URINE AUTO NEGATIVE (NEGATIVE); RBC, URINE AUTO 1 /HPF (0-3); SPECIFIC GRAVITY URINE AUTO 1.016 (1.002-1.035); SQUAMOUS EPITHELIAL CELL UR AU 2 /HPF (0-6); UROBILINOGEN, URINE AUTO 0.2 mg/dL (0.0-2.0); WBC, URINE AUTO 2 /HPF (0-3)
== END ==
LOC: M SMT 12:46
PROVIDERS: ATTEND Physician Assistant
DX: R39.9 Unspecified symptoms and signs involving the genitourinary system (principal)

== ENCOUNTER → 2024-12-15 | Outpatient (REF) | payer MEDICARE, BC ==
[2024-12-15 14:58] LABS: ALT/SGPT 18 U/L (7.0-40); AST/SGOT 24 U/L (<34); C REACTIVE PROTEIN QUANTITATIV < 0.50 MG/DL (<1.0); CALCIUM LEVEL 9.0 MG/DL (8.3-10.6); CARBON DIOXIDE LEVEL 31 MMOL/L (20-31); CHLORIDE LEVEL 103 MMOL/L (98-107); CREATININE FOR GFR 1.04 MG/DL (0.55-1.30); GLOMERULAR FILTRATION RATE 59.7 (>45); POTASSIUM SERUM 4.6 MMOL/L (3.5-5.1); SODIUM LEVEL 142 MMOL/L (136-145)
[2024-12-15 15:19] LABS: BASO # 0.0 10^3/uL (0.0-0.2); BASO % 0.6 % (0.0-1.0); EOS # 0.1 10^3/uL (0.0-0.5); EOS % 2.1 % (0.0-3.0); LYMPH # 2.6 10^3/uL (1.5-5.0); LYMPH % 50.4 % (24.0-44.0); MONO # 0.4 10^3/uL (0.0-0.8); MONO % 7.0 % (2.0-8.0); NEUTROPHILS # 2.1 10^3/uL (1.5-8.5); NEUTROPHILS % 39.7 % (36.0-66.0); PLATELET COUNT, AUTOMATED 285 10^3/uL (150-450)
== END ==
LOC: M SFHCCLAY 07:18
PROVIDERS: ATTEND Internal Medicine
DX: L40.50 Arthropathic psoriasis, unspecified (principal)

== ENCOUNTER → 2024-12-22 | Outpatient (REF) | payer MEDICARE, BC ==
[2024-12-22 18:38] LABS: IRON (FE) 57.0 UG/DL (50-170); PERCENT SATURATION 20.1 % (13.2-45.0); VITAMIN B12 LEVEL 586.0 PG/ML (211-911)
== END ==
LOC: M SFHCRHEU 07:26
PROVIDERS: ATTEND Internal Medicine
DX: L40.50 Arthropathic psoriasis, unspecified (principal); D64.9 Anemia, unspecified

== ENCOUNTER → 2025-01-12 | Outpatient (REF) | payer MEDICARE, BC ==
[2025-01-12 17:42] LABS: BASO # 0.0 10^3/uL (0.0-0.2); BASO % 0.8 % (0.0-1.0); EOS # 0.1 10^3/uL (0.0-0.5); EOS % 1.7 % (0.0-3.0); LYMPH # 2.5 10^3/uL (1.5-5.0); LYMPH % 46.7 % (24.0-44.0); MONO # 0.4 10^3/uL (0.0-0.8); MONO % 7.2 % (2.0-8.0); NEUTROPHILS # 2.3 10^3/uL (1.5-8.5); NEUTROPHILS % 43.4 % (36.0-66.0); PLATELET COUNT, AUTOMATED 298 10^3/uL (150-450)
[2025-01-12 18:06] LABS: C REACTIVE PROTEIN QUANTITATIV < 0.50 MG/DL (<1.0)
[2025-01-12 18:07] LABS: ALT/SGPT 22 U/L (7.0-40); AST/SGOT 25 U/L (<34); CALCIUM LEVEL 9.4 MG/DL (8.3-10.6); CARBON DIOXIDE LEVEL 31 MMOL/L (20-31); CHLORIDE LEVEL 104 MMOL/L (98-107); CREATININE FOR GFR 1.06 MG/DL (0.55-1.30); GLOMERULAR FILTRATION RATE 58.3 (>45); POTASSIUM SERUM 4.8 MMOL/L (3.5-5.1); SODIUM LEVEL 143 MMOL/L (136-145)
== END ==
LOC: M LABDRAWC 16:54
PROVIDERS: ATTEND Internal Medicine
DX: L40.50 Arthropathic psoriasis, unspecified (principal)